=== PATIENT | female | born 1940 | race Caucasian/White ===

== ENCOUNTER 2018-09-24 07:03 | Day surgery (SDC) | payer MEDICARE ==
[2018-09-23 12:19] VITALS: BMI 23.1
[2018-09-24] MEDS ORDERED: MIDAZOLAM HCL 2 MG/2 ML SINGLE DOSE VIAL ONE (07:59)
[2018-09-24] MEDS ORDERED: TETRACAINE/BENZOCAINE/BUTAMBEN 20 GM SPR TP ONE (08:05)
[2018-09-24 09:04] VITALS: TEMP 97.4
[2018-09-24 10:18] LABS: BASO % 0.5 % (0-2.0); EOS % 0.3 % (0-4.5); HEMATOCRIT 41.2 % (32.4-45.2); LYMPH % 15.3 % (8-40); MCH 29.1 pg (25.7-33.7); MEAN CELL VOLUME 85.4 fl (80-96); MEAN PLT VOLUME 7.4 fl (7.5-11.1); MONO % 7.9 % (3.8-10.2); PLATELET COUNT 235 K/MM3 (134-434); RBC 4.83 M/mm3 (3.60-5.2); RDW 14.5 % (11.6-15.6); WHITE BLOOD COUNT 7.4 K/mm3 (4.0-10.0)
[2018-09-24 11:04] LABS: ALBUMIN 3.8 g/dl (3.4-5.0); ALK PHOS 79 U/L (45-117); ANION GAP 8 MMOL/L (8-16); BLOOD UREA NITROGEN 12 mg/dL (7-18); CALCIUM 9.2 mg/dL (8.5-10.1); CHLORIDE 103 mmol/L (98-107); CO2 28 mmol/L (21-32); CREATININE 0.9 mg/dL (0.55-1.3); GLUCOSE,RANDOM 91 mg/dL (74-106); SGOT/AST 21 U/L (15-37); SGPT/ALT 22 U/L (13-61); SODIUM 140 mmol/L (136-145); TOT PROT 7.6 g/dl (6.4-8.2)
[2018-09-24 11:33] VITALS: BP 112/74; PULSE 53
[2018-09-25 06:05] LABS: CARCINOEMBRYONIC ANTIGEN 6.6 ng/mL (0.0-4.7)
--- NOTE | 2018-09-28 18:23 | PATH ---
Surgical Pathology Report Patient Name: RADHA MUELLER [facility]. Rec. #: [id number] /Age/Gender: 1940 (Age: 77) / F Account: [id number] Location: U-ENDOSCOPY Taken: 09/24/2018 Received: 09/24/2018 Reported: 09/28/2018 Physicians: Charan Matthew M.D. Specimen(s) Received A: ANTRUM B: ESOPHAGUS C: RECTAL POLYP D: ANASTOMOTIC POLYP Clinical History Elevated CEA, rule out recurrent esophageal cancer, rule out colon cancer Postoperative diagnosis: GERD, gastroparesis, status post esophagectomy anastomosis, colon polyps, colon diverticuli Final Diagnosis A. STOMACH, ANTRUM, BIOPSY: GASTRIC ANTRAL MUCOSA WITH MODERATE CHRONIC GASTRITIS. IMMUNOHISTOCHEMICAL STAIN FOR H. PYLORI IS NEGATIVE. B. ESOPHAGO-GASTRIC ANASTOMOSIS, BIOPSY: SQUAMOCOLUMNAR MUCOSA WITH MARKED ACUTE AND CHRONIC INFLAMMATION, FOCAL ULCERATION, AND REFLUX TYPE CHANGES. NO INTESTINAL METAPLASIA OR DYSPLASIA IDENTIFIED. PAS FUNGAL STAIN IS NEGATIVE. C. RECTAL POLYP, BIOPSY: HYPERPLASTIC POLYP. D. STOMACH, POLYP, BIOPSY: POLYPOID COLONIC MUCOSA WITH PROMINENT LYMPHOID AGGREGATES AND SUPERFICIAL HYPERPLASTIC FEATURES. Electronically Signed Lovely Black M.D. Gross Description A. Received in formalin, labeled "biopsy antrum" are 4 keyes, irregular portions of soft tissue ranging from 0.3-0.4 cm. in greatest dimension. The specimens are submitted in toto in one cassette. B. Received in formalin, labeled "biopsy esophagogastric anastomosis" are 4 keyes, irregular portions of soft tissue ranging from 0.2-0.5 cm. in greatest dimension. The specimens are submitted in toto in one cassette. C. Received in formalin, labeled "biopsy rectal polyp" are 2 keyes, irregular portions of soft tissue measuring 0.2 and 0.4 cm. in greatest dimension. The specimens are submitted in toto in one cassette. D. Received in formalin, labeled "biopsy anastomotic polyp" are 2 keyes, irregular portions of soft tissue measuring 0.2 and 0.3 cm. in greatest dimension. The specimens are submitted in toto in one cassette. /09/24/2018 saudi09/24/2018
== END 2018-09-24 10:27 | disposition home or self-care (01) ==
LOC: JASU-ENDO 07:03
PROVIDERS: ATTEND Internal Medicine Gastroenterology
PROC: 0DBL8ZX Excision of Transverse Colon, Via Natural or Artificial Opening Endoscopic, Diagnostic (ICD-10-PCS; 2018-09-24)
PROC: 0DB58ZX Excision of Esophagus, Via Natural or Artificial Opening Endoscopic, Diagnostic (ICD-10-PCS; 2018-09-24)
PROC: 0DB68ZX Excision of Stomach, Via Natural or Artificial Opening Endoscopic, Diagnostic (ICD-10-PCS; 2018-09-24)
PROC: 0DBP8ZX Excision of Rectum, Via Natural or Artificial Opening Endoscopic, Diagnostic (ICD-10-PCS; principal; 2018-09-24 08:00)
DX: Z12.11 Encounter for screening for malignant neoplasm of colon (principal); Z86.010 Personal history of colon polyps; D12.3 Benign neoplasm of transverse colon; K62.1 Rectal polyp; K64.8 Other hemorrhoids; K57.30 Diverticulosis of large intestine without perforation or abscess without bleeding; Z98.0 Intestinal bypass and anastomosis status; K21.0 Gastro-esophageal reflux disease with esophagitis
CPT/HCPCS: 36415; 80053; 82378; 82728; 83540; 83550; 85025; 86140; 86301; 88305-TC; 88312-TC; 88342-TC

== ENCOUNTER 2018-11-13 10:09 | Emergency (ER) | payer MEDICARE ==
--- NOTE | 2018-11-13 10:34 | PDOC ---
History of Present Illness - General Chief Complaint: Respiratory Stated Complaint: PNEUMONIA Time Seen by Provider: 11/13/18 10:33 History Source: Patient Exam Limitations: No Limitations - History of Present Illness Initial Comments: 78 yo pleasant female w a pmh of CAD s/p cath 2 years prior 40% stenosis, HTN, HLD, COPD, esophageal carcinoma s/p resection, diverticulosis, GERD, Cirrhosis, cholelithiasis, breast Ca s/p left mastectomy, Chronic low back pain, osteoarthritis, NIDDM who presents to the ER to be evaluated for if she has pneumonia. She has been experiencing left sided intermittent crampy pain on the left side of her chest. She states she has had walking pneumonia in the past and this feels extremely similar to her past episode of walking PNA. She has been experiencing some shortness of breath on exertion for the past few days as well. PCP: Alvarado Espinoza PSH: Colonoscopy, Hernia Repair, Mastectomy, Upper Endoscopy, esophageal carcinoma resection Social Hx: 50 Pack year smoking hx, quit 20 years prior, recreational alcohol usage. Allergies: Sulfa Past History - Past Medical History Allergies/Adverse Reactions: Allergies Allergy/AdvReac Type Severity Reaction Status Date / Time Sulfa (Sulfonamide Allergy Rash Verified 11/13/18 10:14 Antibiotics) [Sulfa(Sulfonamide Antibiotics)] Home Medications: Ambulatory Orders Amlodipine Besylate [Norvasc -] 2.5 mg PO DAILY 02/05/15 Pantoprazole Sodium [Protonix] 40 mg PO DAILY #0 02/18/16 Ascorbic Acid [Vitamin C] 500 mg PO DAILY 09/23/18 Folic Acid 1 mg PO DAILY 09/23/18 Mag Carb/Aluminum Hydrox/Algin [Gaviscon Liquid] 30 ml PO PRN 09/23/18 Multivit-Min/Iron/Folic/Lutein [Centrum Silver Women Tablet] 1 tab PO DAILY Cholecalciferol (Vitamin D3) [Vitamin D3 -] 100 unit PO DAILY 11/13/18 Levofloxacin [Levaquin] 750 mg PO DAILY 7 Days #7 tablet 11/13/18 Anemia: No Asthma: No Cancer: Yes (ESOPHAGUS,BREAST CANCER) Cardiac Disorders: No CVA: No COPD: No CHF: No Dementia: No Diabetes: (HYPOGLYCEMIA) GI Disorders: Yes (GERD,DIVERTICULOSIS,COLON ADENOMAS) Disorders: No HTN: Yes Hypercholesterolemia: No Liver Disease: Yes (NON ALCOHOLIC STESTOHEPATITIS) Seizures: No Thyroid Disease: No - Surgical History Abdominal Surgery: Yes (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, ESOPHAGEAL RESECTION;) Appendectomy: Yes Cardiac Surgery: No Cholecystectomy: No Lung Surgery: No Neurologic Surgery: No Orthopedic Surgery: No - Suicide/Smoking/Psychosocial Hx Smoking Status: Yes Smoking History: Former smoker Have you smoked in the past 12 months: No Number of Cigarettes Smoked Daily: 0 If you are a former smoker, when did you quit?: 15 yrs ago Information on smoking cessation initiated: No 'Breaking Loose' booklet given: 06/12/15 Hx Alcohol Use: Yes (OCCASIONAL) Drug/Substance Use Hx: No Substance Use Type: None Hx Substance Use Treatment: No Review of Systems - Review of Systems Able to Perform ROS?: Yes Constitutional: Yes: Chills, Diaphoresis, Fever HEENTM: No: Blurred Vision Respiratory: Yes: Cough, Shortness of Breath, SOB with Exertion, SOB at Rest Cardiac (ROS): Yes: Chest Pain. No: Irregular Heart Rate, Palpitations, Syncope ABD/GI: No: Constipated, Diarrhea, Nausea, Vomiting : No: Burning, Dysuria, Discharge Musculoskeletal: No: Back Pain, Joint Pain Integumentary: No: Bruising, Change in Color, Dryness, Erythema Neurological: No: Headache, Numbness, Paresthesia Psychiatric: No: Anxiety, Depression Endocrine: No: Excessive Sweating, Flushing Hematologic/Lymphatic: No: Blood Clots, Easy Bleeding, Bleeding Diathesis *Physical Exam - Vital Signs Last Vital Signs Temp Pulse Resp BP Pulse Ox 97.7 F 72 20 128/72 95 11/13/18 10:15 11/13/18 10:15 11/13/18 10:15 11/13/18 10:15 11/13/18 10:15 - Physical Exam General Appearance: Yes: Nourished, Appropriately Dressed. No: Apparent Distress HEENT: positive: EOMI, MELANI, Normal ENT Inspection, Normal Voice Neck: positive: Supple Respiratory/Chest: positive: Decreased Breath Sounds, Crackles (left side). negative: Lungs Clear, Respiratory Distress, Accessory Muscle Use, Labored Respiration, Rapid RR, Rhonchi, Stridor, Wheezing Cardiovascular: positive: Regular Rhythm, Regular Rate, S1, S2 Vascular Pulses: Dorsalis-Pedis (R): 2+, Doralis-Pedis (L): 2+ Gastrointestinal/Abdominal: negative: Distended Rectal Exam: positive: deferred Lymphatic: negative: Adenopathy Musculoskeletal: positive: Normal Inspection. negative: CVA Tenderness Extremity: positive: Normal Capillary Refill, Normal Inspection, Normal Range of Motion Integumentary: positive: Normal Color, Dry, Warm Neurologic: positive: manager animal II-XII NML intact, Fully Oriented, Alert, Normal Mood/ Affect ED Treatment Course - LABORATORY CBC & Chemistry Diagram: 11/13/18 11:27 11/13/18 11:27 - RADIOLOGY Radiograph Interpretation: Chest CT: CT scan of the chest without intravenous contrast Coronal and sagittal reconstruction images were obtained. Compared to prior chest x-ray dated 11/13/2018 and prior scan of the chest dated 08/05/2018 There is consolidation/atelectasis in lingular segment of the left upper lobe since consistent with pneumonia. There are also mild atelectatic changes in the right middle lobe, anteriorly medially. Mild atelectatic changes in the left lung base and a small left pleural effusion. Mild to moderate COPD changes are present. No pneumothorax is identified. Included lower neck appears unremarkable there are a few borderline mediastinal lymph nodes which are nonspecific. The heart is slightly enlarged. There is a trace of pericardial effusion. There is suggestion of gastric pull-through surgery with air-fluid level. Included upper abdomen appears unremarkable. Visualized osseous structures appear intact with anterior spondylosis and degenerative changes IMPRESSION: Mild to moderate COPD changes. Interval atelectasis/consolidation in lingular segment of the left upper lobe suggestive of pneumonia. There are also mild atelectatic changes in the right middle lobe, medially. Mild atelectatic changes in the left lower lobe with likely patchy infiltrates. A small left pleural effusion is present. No gross enlarged mediastinal lymph nodes are identified. Mild cardiomegaly. Dense calcification of the coronary arteries are present and there is a trace of pericardial effusion. Patient is apparently status post gastric pull-through. Correlate clinically for further evaluation. Medical Decision Making - Medical Decision Making 78 yo pleasant female w a pmh of CAD s/p cath 2 years prior 40% stenosis, HTN, HLD, COPD, esophageal carcinoma s/p resection, diverticulosis, GERD, Cirrhosis, cholelithiasis, breast Ca s/p left mastectomy, Chronic low back pain, osteoarthritis, NIDDM who presents to the ER to be evaluated for if she has pneumonia. She has been experiencing left sided intermittent crampy pain on the left side of her chest. She states she has had walking pneumonia in the past and this feels extremely similar to her past episode of walking PNA. She has been experiencing some shortness of breath on exertion for the past few days as well. VS: WNL DDx IBNLT: PNA, pneumothorax, ACS/MO, arrhythmia, electrolyte/metabolic disturbance, malignancy Plan: Labs, urine, CXR, EKG, chest Ct, IV hydration, re-assess. CXR shows a left sided PNA - Will treat with Abx Chest CT shows PNA as well and no malignancy. Spoke with patient's PCP Dr. Espinoza - Patient's PCP who agrees with our plan to DC the patient and states he can see her in the office this week for follow up. *DC/Admit/Observation/Transfer Diagnosis at time of Disposition: PNA (pneumonia) - Discharge Dispostion Disposition: HOME Condition at time of disposition: Stable Decision to Admit order: No - Prescriptions Prescriptions: Levofloxacin [Levaquin] 750 mg PO DAILY 7 Days #7 tablet - Referrals Referrals: Alvarado Espinoza MD [Staff Physician] - - Patient Instructions Printed Discharge Instructions: DI for Pneumonia -- Adult Additional Instructions: You came into the ER with chest paina nd shortness of breath. We did a cat scan and x-ray which showed you have a pneumonia. 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 We spoke with your primary care doctor who said he can see you in the office this week to make sure you are getting better and being taken care of. Come back to the ER immediately if your pain worsens, you become short of breath or have any other new or worsening concerns. Thank you for coming to the [facility] ER. We hope you feel better soon! Print Language: GEORGIAN - Post Discharge Activity
[2018-11-13] MEDS ORDERED: SODIUM CHLORIDE IV ONE (11:13)
[2018-11-13 12:00] LABS: BASO % 0.2 % (0-2.0); EOS % 0.8 % (0-4.5); HEMATOCRIT 37.2 % (32.4-45.2); HEMOGLOBIN 12.5 GM/dL (10.7-15.3); MCH 27.6 pg (25.7-33.7); MCHC 33.6 g/dl (32.0-36.0); MEAN CELL VOLUME 82.4 fl (80-96); MEAN PLT VOLUME 8.2 fl (7.5-11.1); MONO % 11.1 % (3.8-10.2); NEUT % 74.9 % (42.8-82.8); PLATELET COUNT 247 K/MM3 (134-434); RBC 4.52 M/mm3 (3.60-5.2); RDW 14.1 % (11.6-15.6); WHITE BLOOD COUNT 8.8 K/mm3 (4.0-10.0)
[2018-11-13] MEDS ORDERED: SODIUM CHLORIDE 0.9% 500 ML INFUS.BAG IV ONE (12:17)
[2018-11-13 12:22] VITALS: BMI 23.8
[2018-11-13 12:23] LABS: ALBUMIN 3.2 g/dl (3.4-5.0); ALK PHOS 102 U/L (45-117); ANION GAP 8 MMOL/L (8-16); BILIRUBIN,TOTAL 1.5 mg/dL (0.2-1); BLOOD UREA NITROGEN 18 mg/dL (7-18); CHLORIDE 102 mmol/L (98-107); CO2 27 mmol/L (21-32); CREATININE 0.7 mg/dL (0.55-1.3); GLUCOSE,RANDOM 109 mg/dL (74-106); POTASSIUM 3.8 mmol/L (3.5-5.1); SGOT/AST 15 U/L (15-37); SGPT/ALT 14 U/L (13-61); SODIUM 137 mmol/L (136-145); TOT PROT 7.2 g/dl (6.4-8.2)
--- NOTE | 2018-11-13 12:54 | PDOC ---
Documentation entered by Alba Duggan SCRIBE, acting as scribe for Chirag Gonzalez MD. Chirag Gonzalez MD: This documentation has been prepared by the Olga Lidia prado Sammi, SCRIBE, under my direction and personally reviewed by me in its entirety. I confirm that the documentation accurately reflects all work, treatment, procedures, and medical decision making performed by me. Attending Attestation - Resident Resident Name: Junior Webb - ED Attending Attestation I have performed the following: I have examined & evaluated the patient, The case was reviewed & discussed with the resident, I agree w/resident's findings & plan - HPI HPI: 11/13/18 12:48 78-year-old female, distant smoking history quit about 34 years ago, breast CA status post surgical resection without chemotherapy/radiation 35 years ago, esophageal CA status post resection without chemotherapy/radiation in 2013, history of one episode of pneumonia in 2014 presents now with left thoracic discomfort for 2 days and slight cough today. No fevers or chills, no shortness of breath, no night sweats. Patient had routine follow-up CT of the chest in July that showed left upper lobe nodule that was otherwise unchanged, has otherwise been in her baseline. Patient presents because her symptoms feel identical to her prior walking pneumonia. - Physicial Exam PE: 11/13/18 12:49 Vital signs are normal Including afebrile and O2 sat 98% on room air Seated comfortably in chair, speaking full sentences Heart is regular, lungs are clear to my auscultation without accessory muscle use or wheezing or focally decreased breath sounds One plus edema bilaterally, left slightly greater than right, ongoing for 1 month with varicosities present - Medical Decision Making 11/13/18 12:50 78-year-old female with breast and esophageal cancer history, also with history of emphysema not currently smoking presents with thoracic/lung discomfort for 2 days and cough today, no fever and with normal O2 sat without any respiratory distress. Chest x-ray performed and reveals left sided pneumonia CBC is within normal limits Given history, we'll check CT chest to rule out any superimposed neoplastic process or effusion If above is within normal limits, patient is well-appearing, can trial of outpatient antibiotics with prompt follow-up. Will discuss with Dr. Espinoza her PCP. Heart Score/ECG Review #1 ECG reviewed & interpreted by me at: 10:11 General ECG Interpretation: Sinus Rhythm (with single PVC noted), Normal Rate ( 77), Normal Intervals (qtc 434), No acute ischemic changes Compared to previous ECG there are: No significant change (c/w 06/12/15)
[2018-11-13 15:39] VITALS: BP 130/77; PULSE 67; TEMP 97.9
--- NOTE | 2018-11-13 16:29 | EKG ---
Test Reason : Blood Pressure : / mmHG Vent. Rate : 077 BPM Atrial Rate : 066 BPM P-R Int : 000 ms QRS Dur : 072 ms QT Int : 384 ms P-R-T Axes : 000 067 084 degrees QTc Int : 434 ms NORMAL SINUS RHYTHM VPCs NONSPECIFIC T WAVE ABNORMALITY Confirmed by MINESH BRUMFIELD, SADIE ([id number]) on 11/13/2018 4:28:51 PM Referred By: Confirmed By:SADIE EDGE MD
== END 2018-11-13 15:39 | disposition home or self-care (01) ==
LOC: JER 10:09
DX: J18.9 Pneumonia, unspecified organism (principal); I25.10 Atherosclerotic heart disease of native coronary artery without angina pectoris; Z98.61 Coronary angioplasty status; I10 Essential (primary) hypertension; E78.5 Hyperlipidemia, unspecified; J44.9 Chronic obstructive pulmonary disease, unspecified; K21.9 Gastro-esophageal reflux disease without esophagitis; M54.5 Low back pain; M19.90 Unspecified osteoarthritis, unspecified site; G89.29 Other chronic pain; E11.9 Type 2 diabetes mellitus without complications; Z85.3 Personal history of malignant neoplasm of breast; Z85.01 Personal history of malignant neoplasm of esophagus
CPT/HCPCS: 36415; 71046-TC-FY; 71250-TC; 80053; 83605; 84484; 85025; 87040; 93005; 93010; 99283-25

== ENCOUNTER 2022-01-01 04:28 | Day surgery (SDC) | payer OTHER, MEDICARE ==
[2021-12-24 15:54] VITALS: BMI 20.9
[2022-01-01] MEDS ORDERED: KETAMINE HCL 200 MG/20 ML VIAL ONE (09:39)
[2022-01-01 10:33] VITALS: TEMP 98
[2022-01-01 10:48] VITALS: PULSE 60
[2022-01-01 11:46] VITALS: BP 139/67
== END 2022-01-01 11:46 | disposition home or self-care (01) ==
LOC: JASU-ENDO 04:28
PROVIDERS: ATTEND Internal Medicine Gastroenterology
PROC: 0DB78ZX Excision of Stomach, Pylorus, Via Natural or Artificial Opening Endoscopic, Diagnostic (ICD-10-PCS; 2022-01-01)
PROC: 0DB48ZX Excision of Esophagogastric Junction, Via Natural or Artificial Opening Endoscopic, Diagnostic (ICD-10-PCS; 2022-01-01)
PROC: 0DB98ZX Excision of Duodenum, Via Natural or Artificial Opening Endoscopic, Diagnostic (ICD-10-PCS; principal; 2022-01-01 10:00)
DX: K22.10 Ulcer of esophagus without bleeding (principal); Z98.0 Intestinal bypass and anastomosis status; K31.84 Gastroparesis; K29.50 Unspecified chronic gastritis without bleeding
CPT/HCPCS: 82962; 88305-TC; 88342-TC

== ENCOUNTER 2022-08-13 00:30 | Inpatient (IN) | payer OTHER, MEDICARE ==
[2022-08-13 00:42] VITALS: BMI 20.3
[2022-08-13] MEDS ORDERED: morphine CARPU-JECT 2 MG/1 ML DISP.SYRIN IVPUSH ONE (00:59)
[2022-08-13] MEDS ORDERED: ONDANSETRON 4 MG/2 ML VIAL IVPUSH ONE ×2 (01:00→07:58)
[2022-08-13] MEDS ORDERED: ONDANSETRON 4 MG/2 ML VIAL ONE ×3 (01:09→07:58)
[2022-08-13 02:02] LABS: BASO % 0.5 % (0-2.0); EOS % 1.1 % (0-4.5); HEMATOCRIT 35.8 % (32.4-45.2); HEMOGLOBIN 12.2 GM/dL (10.7-15.3); LYMPH % 17.9 % (8-40); MCH 28.2 pg (25.7-33.7); MCHC 34.1 g/dl (32.0-36.0); MEAN CELL VOLUME 82.7 fl (80-96); MEAN PLT VOLUME 7.7 fl (7.5-11.1); NEUT % 72.5 % (42.8-82.8); PLATELET COUNT 207 10^3/uL (134-434); RBC 4.33 M/mm3 (3.60-5.2); RDW 15.1 % (11.6-15.6); WHITE BLOOD COUNT 6.4 K/mm3 (4.0-10.0)
[2022-08-13 02:09] LABS: INR 1.13 (0.83-1.09)
[2022-08-13 02:12] LABS: ACTIVATED PTT 28.4 SECONDS (25.2-36.5)
[2022-08-13] MEDS ORDERED: morphine CARPU-JECT 4 MG/1 ML DISP.SYRIN IVPUSH ONE (02:16)
[2022-08-13] MEDS ORDERED: morphine SULFATE 4 MG/ML VIAL ONE (02:19)
[2022-08-13 02:24] LABS: ALBUMIN 3.6 g/dl (3.4-5.0); BLOOD UREA NITROGEN 16.5 mg/dL (7-18)
[2022-08-13 02:27] LABS: CREATININE 0.7 mg/dL (0.55-1.3)
[2022-08-13 02:28] LABS: BILIRUBIN,TOTAL 0.6 mg/dL (0.2-1)
[2022-08-13 02:29] LABS: TOT PROT 7.4 g/dl (6.4-8.2)
[2022-08-13] MEDS ORDERED: ACETAMINOPHEN 1000 MG/100 ML BAG IVPB ONE (03:24)
[2022-08-13] MEDS ORDERED: FAMOTIDINE 20 MG/50 ML IVPB 20 MG/50 ML MG IVPB ONE ×2 (03:33→03:34)
[2022-08-13] MEDS ORDERED: ACETAMINOPHEN INJECTION 100 ML IVPB ONE (03:34)
[2022-08-13] MEDS ORDERED: HYDROmorphone HCl 2 MG/ML VIAL IVPB ONE (06:17)
[2022-08-13] MEDS ORDERED: HYDROmorphone HCL CARPU-JECT 2 MG/1 ML DISP.SYRIN IVPB ONE (06:17)
[2022-08-13] MEDS ORDERED: HYDROmorphone HCl 2 MG/ML VIAL ONE (06:19)
[2022-08-13] MEDS ORDERED: ACETAMINOPHEN 1000 MG/100 ML BAG IVPB PRN (08:00)
[2022-08-13] MEDS: morphine SULFATE 4 MG/ML VIAL IVPUSH PRN ×3 (14:25→23:23)
[2022-08-14] MEDS: morphine SULFATE 4 MG/ML VIAL IVPUSH PRN ×2 (03:21→07:48)
[2022-08-14] MEDS ORDERED: ACETAMINOPHEN INJECTION 100 ML IVPB ONE (08:20)
[2022-08-14] MEDS ORDERED: BUPIVACAINE HCL/PF 0.5% (5MG/ML) 10 ML VIAL ONE (08:20)
[2022-08-14] MEDS ORDERED: ceFAZolin SODIUM 1 GM VIAL ONE (08:22)
[2022-08-14] MEDS ORDERED: ONDANSETRON 4 MG/2 ML VIAL ONE (08:22)
[2022-08-14] MEDS ORDERED: DEXAMETHASONE SOD PHOSPHATE 4 MG/1 ML VIAL ONE (08:22)
[2022-08-14] MEDS ORDERED: PROPOFOL 20 ML ONE ×2 (08:22→10:13)
[2022-08-14] MEDS ORDERED: SUCCINYLCHOLINE CHLORIDE 200 MG/10 ML SYRINGE ONE (08:25)
[2022-08-14 08:49] LABS: BASO % 0.3 % (0-2.0); EOS % 0.8 % (0-4.5); HEMOGLOBIN 11.3 GM/dL (10.7-15.3); LYMPH % 13.5 % (8-40); MCH 27.6 pg (25.7-33.7); MCHC 33.1 g/dl (32.0-36.0); MEAN CELL VOLUME 83.3 fl (80-96); MEAN PLT VOLUME 8.2 fl (7.5-11.1); MONO % 10.5 % (3.8-10.2); NEUT % 74.9 % (42.8-82.8); PLATELET COUNT 185 10^3/uL (134-434); RBC 4.08 M/mm3 (3.60-5.2); RDW 14.8 % (11.6-15.6); WHITE BLOOD COUNT 7.5 K/mm3 (4.0-10.0)
[2022-08-14] MEDS ORDERED: ACETAMINOPHEN 325 MG TABLET (FP) PO PRN ×3 (08:53→17:16)
[2022-08-14] MEDS ORDERED: LACTATED RINGERS SOLUTION 1,000 ML IV SCH ×3 (09:00→11:45)
[2022-08-14 09:18] LABS: CALCIUM 8.9 mg/dL (8.5-10.1)
[2022-08-14 09:19] LABS: BLOOD UREA NITROGEN 17.6 mg/dL (7-18)
[2022-08-14 09:22] LABS: CREATININE 0.5 mg/dL (0.55-1.3)
[2022-08-14] MEDS ORDERED: amLODIPine BESYLATE 5 MG TABLET (FP) PO SCH (10:00)
[2022-08-14] MEDS ORDERED: PANTOPRAZOLE 20 MG TABLET PO SCH (10:00)
[2022-08-14] MEDS ORDERED: ePHEDrine SULFATE 50 MG/1 ML AMPULE ONE (10:01)
[2022-08-14] MEDS ORDERED: ACETAMINOPHEN 1000 MG/100 ML BAG IVPB PRN (11:31)
[2022-08-14] MEDS ORDERED: morphine SULFATE 4 MG/ML VIAL IVPUSH PRN (11:31)
[2022-08-14] MEDS: LACTATED RINGERS SOLUTION 1,000 ML IV SCH ×2 (17:50→21:36)
[2022-08-14] MEDS: CEFAZOLIN SODIUM 2 GM in DEXTROSE 5%-WATER 100 ML IVPB SCH (18:15)
[2022-08-14] MEDS ORDERED: CEFAZOLIN SODIUM 2 GM in DEXTROSE 5%-WATER 100 ML IVPB SCH (19:00)
[2022-08-15] MEDS: morphine SULFATE 4 MG/ML VIAL IVPUSH PRN ×2 (00:23→20:43)
[2022-08-15] MEDS: CEFAZOLIN SODIUM 2 GM in DEXTROSE 5%-WATER 100 ML IVPB SCH (02:10)
[2022-08-15] MEDS ORDERED: ENOXAPARIN NA (PORCINE) 40 MG/0.4 ML DISP.SYRIN SQ SCH (10:00)
[2022-08-15] MEDS ORDERED: PANTOPRAZOLE 20 MG TABLET PO SCH (10:00)
[2022-08-15] MEDS ORDERED: amLODIPine BESYLATE 5 MG TABLET (FP) PO SCH (10:00)
[2022-08-15] MEDS: ENOXAPARIN NA (PORCINE) 40 MG/0.4 ML DISP.SYRIN SQ SCH (11:00)
[2022-08-15] MEDS: PANTOPRAZOLE 20 MG TABLET PO SCH (11:01)
[2022-08-15] MEDS: amLODIPine BESYLATE 5 MG TABLET (FP) PO SCH (11:02)
[2022-08-15] MEDS: ACETAMINOPHEN 1000 MG/100 ML BAG IVPB PRN (11:02)
[2022-08-15 12:23] LABS: HEMATOCRIT 26.6 % (32.4-45.2); HEMOGLOBIN 8.8 GM/dL (10.7-15.3); MCH 27.6 pg (25.7-33.7); MCHC 33.2 g/dl (32.0-36.0); MEAN CELL VOLUME 83.2 fl (80-96); MEAN PLT VOLUME 7.8 fl (7.5-11.1); PLATELET COUNT 159 10^3/uL (134-434); RDW 14.9 % (11.6-15.6); WHITE BLOOD COUNT 7.7 K/mm3 (4.0-10.0)
[2022-08-15 12:47] LABS: BLOOD UREA NITROGEN 11.5 mg/dL (7-18)
[2022-08-15 12:50] LABS: CREATININE 0.8 mg/dL (0.55-1.3)
[2022-08-15 12:52] LABS: CALCIUM 7.4 mg/dL (8.5-10.1)
[2022-08-15] MEDS: LACTATED RINGERS SOLUTION 1,000 ML IV SCH (20:43)
[2022-08-16] MEDS: PANTOPRAZOLE 20 MG TABLET PO SCH (09:28)
[2022-08-16] MEDS: ENOXAPARIN NA (PORCINE) 40 MG/0.4 ML DISP.SYRIN SQ SCH (09:28)
[2022-08-16] MEDS: amLODIPine BESYLATE 5 MG TABLET (FP) PO SCH (09:31)
[2022-08-16 09:32] VITALS: PULSE 59; RESP 16
[2022-08-16] MEDS: ACETAMINOPHEN 1000 MG/100 ML BAG IVPB PRN (09:36)
[2022-08-16 10:32] LABS: BASO % 0.5 % (0-2.0); EOS % 3.3 % (0-4.5); HEMATOCRIT 27.9 % (32.4-45.2); HEMOGLOBIN 9.5 GM/dL (10.7-15.3); LYMPH % 12.8 % (8-40); MCHC 33.9 g/dl (32.0-36.0); MEAN CELL VOLUME 82.6 fl (80-96); MEAN PLT VOLUME 8.1 fl (7.5-11.1); MONO % 11.8 % (3.8-10.2); NEUT % 71.6 % (42.8-82.8); PLATELET COUNT 184 10^3/uL (134-434); RBC 3.37 M/mm3 (3.60-5.2); RDW 15.3 % (11.6-15.6); WHITE BLOOD COUNT 9.2 K/mm3 (4.0-10.0)
[2022-08-16 10:58] LABS: BLOOD UREA NITROGEN 13.3 mg/dL (7-18); CALCIUM 8.5 mg/dL (8.5-10.1)
[2022-08-16 11:01] LABS: CREATININE 0.6 mg/dL (0.55-1.3)
[2022-08-16 11:03] LABS: TOT PROT 6.4 g/dl (6.4-8.2)
[2022-08-16 11:09] LABS: ALBUMIN 2.9 g/dl (3.4-5.0)
[2022-08-16] MEDS ORDERED: SIMETHICONE 80 MG TAB.CHEW (FP) PO ONE (13:15)
[2022-08-16 16:46] VITALS: BP 112/53; TEMP 97.4
== END 2022-08-16 16:00 | DRG 480 ==
LOC: JER 00:30 → JERBED 01:09 → J8W 08:30 → J6S 22:08
PROVIDERS: ADMIT Internal Medicine; ATTEND Internal Medicine
PROC: 0QS606Z Reposition Right Upper Femur with Intramedullary Internal Fixation Device, Open Approach (ICD-10-PCS; principal; 2022-08-14 09:00)
DX: S72.144A Nondisplaced intertrochanteric fracture of right femur, initial encounter for closed fracture (principal); U07.1 COVID-19; I25.10 Atherosclerotic heart disease of native coronary artery without angina pectoris; E78.5 Hyperlipidemia, unspecified; J44.9 Chronic obstructive pulmonary disease, unspecified; K21.9 Gastro-esophageal reflux disease without esophagitis; E11.9 Type 2 diabetes mellitus without complications; Z85.3 Personal history of malignant neoplasm of breast; Z85.00 Personal history of malignant neoplasm of unspecified digestive organ; I11.0 Hypertensive heart disease with heart failure; I50.9 Heart failure, unspecified; W19.XXXA Unspecified fall, initial encounter; Y93.9 Activity, unspecified; Y92.89 Other specified places as the place of occurrence of the external cause; Y99.9 Unspecified external cause status
CPT/HCPCS: 36415; 70450-TC; 71045-TC-FY; 72125-TC; 72192-TC; 73552-TC-RT-FY; 76000-TC-FY; 80048; 80053; 82962; 84484; 85025; 85027; 85610; 85730; 86850; 86900; 86901; 93005; 93010; 93306-TC; 94760; 97116-GP; 97162-GP; 99285-25; C1713; C9803-CS; U0003; U0005

== ENCOUNTER 2022-10-07 14:43 | Emergency (ER) | payer OTHER, MEDICARE ==
[2022-10-07 15:04] VITALS: BP 126/62; PULSE 74; RESP 19; TEMP 97.9; BMI 19.1
[2022-10-07 16:30] LABS: BASO % 0.2 % (0-2.0); EOS % 0.2 % (0-4.5); HEMATOCRIT 34.2 % (32.4-45.2); HEMOGLOBIN 11.2 GM/dL (10.7-15.3); LYMPH % 9.2 % (8-40); MCHC 32.9 g/dl (32.0-36.0); MEAN CELL VOLUME 75.9 fl (80-96); MEAN PLT VOLUME 6.8 fl (7.5-11.1); MONO % 10.6 % (3.8-10.2); NEUT % 79.8 % (42.8-82.8); PLATELET COUNT 254 10^3/uL (134-434); RDW 14.6 % (11.6-15.6); WHITE BLOOD COUNT 9.3 K/mm3 (4.0-10.0)
[2022-10-07 17:08] LABS: CALCIUM 9.1 mg/dL (8.5-10.1)
[2022-10-07 17:09] LABS: ALBUMIN 3.2 g/dl (3.4-5.0); BLOOD UREA NITROGEN 14.2 mg/dL (7-18); MAGNESIUM 1.5 mg/dL (1.8-2.4)
[2022-10-07 17:12] LABS: CREATININE 0.6 mg/dL (0.55-1.3)
[2022-10-07 17:14] LABS: BILIRUBIN,TOTAL 0.9 mg/dL (0.2-1); TOT PROT 7.5 g/dl (6.4-8.2)
[2022-10-07 17:17] LABS: N-TERMINAL BNP 1216.6 pg/ml (5-450)
== END 2022-10-07 19:37 | disposition home or self-care (01) ==
LOC: JER 14:43
DX: J18.1 Lobar pneumonia, unspecified organism (principal)
CPT/HCPCS: 0241U-QW; 36415; 71275-TC; 80053; 80198; 83735; 83880; 84484; 85025; 86850; 86900; 86901; 93005; 93010; 99285-25; Q9967

== ENCOUNTER 2022-11-07 18:07 | Inpatient (IN) | payer OTHER, MEDICARE ==
[2022-11-07 19:13] LABS: BASO % 0.4 % (0-2.0); EOS % 0.4 % (0-4.5); HEMATOCRIT 34.4 % (32.4-45.2); HEMOGLOBIN 11.3 GM/dL (10.7-15.3); LYMPH % 11.4 % (8-40); MCH 23.8 pg (25.7-33.7); MCHC 32.8 g/dl (32.0-36.0); MEAN CELL VOLUME 72.5 fl (80-96); MONO % 10.5 % (3.8-10.2); NEUT % 77.3 % (42.8-82.8); PLATELET COUNT 263 10^3/uL (134-434); RBC 4.75 M/mm3 (3.60-5.2)
[2022-11-07 19:22] LABS: POTASSIUM 3.7 mmol/L (3.5-5.1)
[2022-11-07 19:24] LABS: BLOOD UREA NITROGEN 12.8 mg/dL (7-18); CALCIUM 9.3 mg/dL (8.5-10.1)
[2022-11-07 19:25] LABS: ALBUMIN 3.2 g/dl (3.4-5.0)
[2022-11-07 19:28] LABS: CREATININE 0.7 mg/dL (0.55-1.3)
[2022-11-07 19:29] LABS: BILIRUBIN,TOTAL 0.7 mg/dL (0.2-1); TOT PROT 7.7 g/dl (6.4-8.2)
[2022-11-07 19:32] LABS: N-TERMINAL BNP 1137.7 pg/ml (5-450)
[2022-11-07] MEDS ORDERED: VANCOMYCIN 1 GM in D5W (PRE-DOCKED) 1,000 MG/250 ML (RESTRICTED TO ID ONLY IVPB ONE (21:25)
[2022-11-07] MEDS ORDERED: PIPERACILLIN/TAZOB 3.375 GM 3.375 GM in DEXTROSE 5%-WATER - 50 ML IVPB ONE (21:26)
[2022-11-07] MEDS: ALBUTEROL SO4 2.5/IPRATROPIUM 0.5 INH SOL 3 ML VIAL.NEB. NEB SCH ×2 (21:51→21:52)
[2022-11-07] MEDS ORDERED: PIPERACILLIN/TAZOB 3.375 GM 3.375 GM/50 ML BAG IVPB ONE (21:55)
[2022-11-07] MEDS ORDERED: VANCOMYCIN/WATER FOR INJ (PEG) 1,000 MG/200 ML BAG IVPB ONE (21:55)
[2022-11-07] MEDS ORDERED: guaiFENesin 200 MG/10 ML 10 ML UNIT-DOSE CUPS PO ONE (22:32)
[2022-11-07] MEDS ORDERED: guaiFENesin/D-METHORPHAN HB 10 ML UNIT-DOSE CUPS ONE (22:51)
[2022-11-07] MEDS ORDERED: ACETAMINOPHEN 325 MG TABLET (FP) PO PRN (23:26)
[2022-11-07] MEDS ORDERED: MAG HYDROX/AL HYDROX/SIMETH 30 ML UNIT-DOSE CUP PO ONE (23:31)
[2022-11-07] MEDS ORDERED: FAMOTIDINE 20 MG/50 ML IVPB 20 MG/50 ML MG IVPB ONE (23:31)
[2022-11-07] MEDS ORDERED: ALBUTEROL SO4 2.5/IPRATROPIUM 0.5 INH SOL 3 ML VIAL.NEB. NEB SCH (23:45)
[2022-11-08] MEDS ORDERED: ALBUTEROL SO4 2.5/IPRATROPIUM 0.5 INH SOL 3 ML VIAL.NEB. NEB ONE (00:18)
[2022-11-08] MEDS ORDERED: FAMOTIDINE 20 MG/50 ML IVPB 20 MG/50 ML MG IVPB ONE (00:18)
[2022-11-08] MEDS ORDERED: METOCLOPRAMIDE HCL 10 MG TABLET (FP) PO PRN (01:16)
[2022-11-08] MEDS ORDERED: MAG HYDROX/AL HYDROX/SIMETH 30 ML UNIT-DOSE CUP ONE (01:18)
[2022-11-08] MEDS ORDERED: ALBUTEROL SO4 2.5/IPRATROPIUM 0.5 INH SOL 3 ML VIAL.NEB. NEB PRN (01:23)
[2022-11-08] MEDS ORDERED: MAG HYDROX/AL HYDROX/SIMETH 30 ML UNIT-DOSE CUP PO PRN (01:30)
[2022-11-08] MEDS: PIPERACILLIN/TAZOB 3.375 GM 3.375 GM in DEXTROSE 5%-WATER - 50 ML IVPB SCH ×2 (03:28→09:06)
[2022-11-08] MEDS ORDERED: INSULIN SLIDING SCALE (NOVOLOG) 1 VIAL SQ SCH ×2 (07:00→07:19)
[2022-11-08] MEDS: MULTIVITAMINS THER W-MINERALS COMBO TABLET (FP) PO SCH (09:05)
[2022-11-08] MEDS: LORATADINE 10 MG TABLET PO SCH (09:05)
[2022-11-08] MEDS: FOLIC ACID 1 MG TABLET (FP) PO SCH (09:05)
[2022-11-08] MEDS: amLODIPine BESYLATE 5 MG TABLET (FP) PO SCH (09:05)
[2022-11-08] MEDS: ASCORBIC ACID 500 MG TABLET (FP) PO SCH (09:05)
[2022-11-08] MEDS: PANTOPRAZOLE 40 MG TABLET PO SCH (09:05)
[2022-11-08] MEDS: ENOXAPARIN NA (PORCINE) 40 MG/0.4 ML DISP.SYRIN SQ SCH (09:06)
[2022-11-08] MEDS ORDERED: LYSINE 500 MG PO SCH (10:00)
[2022-11-08] MEDS ORDERED: CHOLECALCIFEROL (VIT D3) 400 UNIT (10 MCG) TABLET PO SCH (10:00)
[2022-11-08 10:19] LABS: BASO % 0.5 % (0-2.0); EOS % 0.3 % (0-4.5); HEMATOCRIT 31.4 % (32.4-45.2); HEMOGLOBIN 10.3 GM/dL (10.7-15.3); LYMPH % 10.6 % (8-40); MCH 23.9 pg (25.7-33.7); MCHC 32.9 g/dl (32.0-36.0); MEAN CELL VOLUME 72.4 fl (80-96); MONO % 9.7 % (3.8-10.2); NEUT % 78.9 % (42.8-82.8); PLATELET COUNT 251 10^3/uL (134-434); RBC 4.33 M/mm3 (3.60-5.2); RDW 15.1 % (11.6-15.6)
[2022-11-08 10:22] LABS: INR 1.24 (0.83-1.09); PROTHROMBIN TIME (PATIENT) 14.3 SEC (9.7-13.0)
[2022-11-08 10:25] LABS: ACTIVATED PTT 27.2 SECONDS (25.2-36.5)
[2022-11-08 10:36] LABS: POTASSIUM 3.5 mmol/L (3.5-5.1)
[2022-11-08 10:41] LABS: BLOOD UREA NITROGEN 12.1 mg/dL (7-18); CALCIUM 9.2 mg/dL (8.5-10.1); MAGNESIUM 1.6 mg/dL (1.8-2.4)
[2022-11-08 10:45] LABS: CREATININE 0.8 mg/dL (0.55-1.3); PHOSPHOROUS 4.2 mg/dL (2.5-4.9)
[2022-11-08] MEDS ORDERED: VANCOMYCIN/WATER FOR INJ (PEG) 750 MG/150 ML BAG IVPB SCH (11:00)
[2022-11-08] MEDS: INSULIN SLIDING SCALE (NOVOLOG) 1 VIAL SQ SCH ×3 (11:24→22:00)
[2022-11-08] MEDS ORDERED: ONDANSETRON 4 MG/2 ML VIAL IVPUSH PRN (12:26)
[2022-11-08 18:49] VITALS: RESP 18
[2022-11-08] MEDS ORDERED: MAGNESIUM SULFATE IN WATER 2 GM/50 ML IVPB IVPB ONE (22:15)
[2022-11-09] MEDS ORDERED: PIPERACILLIN/TAZOB 3.375 GM 3.375 GM in DEXTROSE 5%-WATER - 50 ML IVPB SCH (03:00)
[2022-11-09] MEDS: INSULIN SLIDING SCALE (NOVOLOG) 1 VIAL SQ SCH ×4 (06:25→23:16)
[2022-11-09] MEDS: MULTIVITAMINS THER W-MINERALS COMBO TABLET (FP) PO SCH (09:35)
[2022-11-09] MEDS: FOLIC ACID 1 MG TABLET (FP) PO SCH (09:35)
[2022-11-09] MEDS: PANTOPRAZOLE 40 MG TABLET PO SCH (09:35)
[2022-11-09] MEDS: ASCORBIC ACID 500 MG TABLET (FP) PO SCH (09:35)
[2022-11-09] MEDS: ENOXAPARIN NA (PORCINE) 40 MG/0.4 ML DISP.SYRIN SQ SCH (09:36)
[2022-11-09] MEDS: LORATADINE 10 MG TABLET PO SCH (09:36)
[2022-11-09] MEDS: amLODIPine BESYLATE 5 MG TABLET (FP) PO SCH (09:45)
[2022-11-09] MEDS ORDERED: VANCOMYCIN/WATER FOR INJ (PEG) 750 MG/150 ML BAG IVPB SCH (11:00)
[2022-11-09] MEDS ORDERED: guaiFENesin/D-METHORPHAN HB 10 ML UNIT-DOSE CUPS PO PRN (12:34)
[2022-11-09] MEDS: BUDESONIDE/FORMETEROL FUMARATE 160/4.5 mcg INHALER IH SCH ×2 (13:48→21:56)
[2022-11-09 14:03] VITALS: BMI 17.8
[2022-11-10] MEDS: INSULIN SLIDING SCALE (NOVOLOG) 1 VIAL SQ SCH ×2 (06:09→11:11)
[2022-11-10] MEDS: FOLIC ACID 1 MG TABLET (FP) PO SCH (09:57)
[2022-11-10] MEDS: LORATADINE 10 MG TABLET PO SCH (09:57)
[2022-11-10] MEDS: MULTIVITAMINS THER W-MINERALS COMBO TABLET (FP) PO SCH (09:57)
[2022-11-10] MEDS: PANTOPRAZOLE 40 MG TABLET PO SCH (09:57)
[2022-11-10] MEDS: ASCORBIC ACID 500 MG TABLET (FP) PO SCH (09:57)
[2022-11-10] MEDS: ENOXAPARIN NA (PORCINE) 40 MG/0.4 ML DISP.SYRIN SQ SCH ×2 (09:58→10:02)
[2022-11-10] MEDS: amLODIPine BESYLATE 5 MG TABLET (FP) PO SCH (09:58)
[2022-11-10] MEDS: BUDESONIDE/FORMETEROL FUMARATE 160/4.5 mcg INHALER IH SCH (09:58)
[2022-11-10 15:33] VITALS: BP 116/58; PULSE 60; TEMP 97.6
== END 2022-11-10 16:59 | disposition home or self-care (01) | DRG 193 ==
LOC: JER 18:07 → JERBED 22:31 → J5S 11-08 01:36
PROVIDERS: ADMIT Internal Medicine; ATTEND Internal Medicine
DX: J18.9 Pneumonia, unspecified organism (principal); E43 Unspecified severe protein-calorie malnutrition; J44.1 Chronic obstructive pulmonary disease with (acute) exacerbation; Z68.1 Body mass index [BMI] 19.9 or less, adult; K21.9 Gastro-esophageal reflux disease without esophagitis; I10 Essential (primary) hypertension; E11.9 Type 2 diabetes mellitus without complications; I25.10 Atherosclerotic heart disease of native coronary artery without angina pectoris; E78.5 Hyperlipidemia, unspecified; Z85.3 Personal history of malignant neoplasm of breast; Z85.01 Personal history of malignant neoplasm of esophagus
CPT/HCPCS: 0241U-QW; 36415; 71045-TC-FY; 71275-TC; 80048; 80053; 82962; 83735; 83880; 84100; 84484; 85025; 85610; 85730; 93005; 93010; 93971-TC; 99285-25; Q9967

== ENCOUNTER 2022-12-17 08:13 | Inpatient (IN) | payer OTHER, MEDICARE ==
[2022-12-17 08:41] VITALS: BMI 17.6
[2022-12-17] MEDS ORDERED: ALBUTEROL SO4 2.5/IPRATROPIUM 0.5 INH SOL 3 ML VIAL.NEB. NEB ONE ×2 (08:59→09:02)
[2022-12-17 09:00] LABS: VENOUS BASE EXCESS 0.5 mmol/L (-2-2); VENOUS O2 SATURATION 57.7 % (70-80); VENOUS PCO2 45.4 mmHg (38-52); VENOUS PH 7.376 (7.310-7.410)
[2022-12-17 09:13] LABS: BASO % 0.3 % (0-2.0); EOS % 0.3 % (0-4.5); HEMATOCRIT 35.6 % (32.4-45.2); HEMOGLOBIN 10.9 GM/dL (10.7-15.3); LYMPH % 4.1 % (8-40); MCH 22.1 pg (25.7-33.7); MCHC 30.7 g/dl (32.0-36.0); MEAN CELL VOLUME 72.1 fl (80-96); MEAN PLT VOLUME 7.9 fl (7.5-11.1); MONO % 5.7 % (3.8-10.2); NEUT % 89.6 % (42.8-82.8); PLATELET COUNT 326 10^3/uL (134-434); RBC 4.94 M/mm3 (3.60-5.2); WHITE BLOOD COUNT 14.5 K/mm3 (4.0-10.0)
[2022-12-17 09:16] LABS: INR 1.3 (0.83-1.09)
[2022-12-17 09:19] LABS: ACTIVATED PTT 22.8 SECONDS (25.2-36.5)
[2022-12-17 09:23] LABS: POTASSIUM 3.7 mmol/L (3.5-5.1)
[2022-12-17 09:26] LABS: BLOOD UREA NITROGEN 17.3 mg/dL (7-18); CALCIUM 9.4 mg/dL (8.5-10.1)
[2022-12-17 09:29] LABS: CREATININE 0.6 mg/dL (0.55-1.3)
[2022-12-17 09:31] LABS: BILIRUBIN,TOTAL 1.5 mg/dL (0.2-1); TOT PROT 7.7 g/dl (6.4-8.2)
[2022-12-17] MEDS ORDERED: VANCOMYCIN 1 GM in D5W (PRE-DOCKED) 1,000 MG/250 ML (RESTRICTED TO ID ONLY IVPB ONE (10:19)
[2022-12-17] MEDS ORDERED: PIPERACILLIN/TAZOB 3.375 GM 3.375 GM in DEXTROSE 5%-WATER - 50 ML IVPB ONE (10:19)
[2022-12-17] MEDS ORDERED: VANCOMYCIN/WATER FOR INJ (PEG) 1,000 MG/200 ML BAG IVPB ONE (10:23)
[2022-12-17] MEDS ORDERED: PIPERACILLIN/TAZOB 3.375 GM 3.375 GM/50 ML BAG IVPB ONE ×2 (10:23→10:24)
[2022-12-17] MEDS ORDERED: ONDANSETRON 4 MG/2 ML VIAL IVPUSH ONE (11:02)
[2022-12-17] MEDS ORDERED: MAG HYDROX/AL HYDROX/SIMETH -MYLANTA- ORAL SUSPENSION PO ONE (11:03)
[2022-12-17] MEDS ORDERED: ONDANSETRON 4 MG/2 ML VIAL ONE (11:08)
[2022-12-17] MEDS ORDERED: MAG HYDROX/AL HYDROX/SIMETH 30 ML UNIT-DOSE CUP ONE (11:08)
[2022-12-17] MEDS ORDERED: METOCLOPRAMIDE HCL 10 MG TABLET (FP) PO PRN (11:36)
[2022-12-17] MEDS ORDERED: ALBUTEROL SO4 2.5/IPRATROPIUM 0.5 INH SOL 3 ML VIAL.NEB. NEB PRN (11:36)
[2022-12-17] MEDS ORDERED: ACETAMINOPHEN 325 MG TABLET (FP) PO PRN (11:38)
[2022-12-17] MEDS ORDERED: MAG HYDROX/AL HYDROX/SIMETH 30 ML UNIT-DOSE CUP PO PRN (11:45)
[2022-12-17] MEDS: guaiFENesin/D-METHORPHAN HB 10 ML UNIT-DOSE CUPS PO PRN (12:59)
[2022-12-17] MEDS: methylPREDNISolone NA SUCC 40 MG/1 ML VIAL IVPUSH SCH ×2 (14:36→18:14)
[2022-12-17] MEDS: ALBUTEROL SO4 0.083% IH SOL 2.5 MG/3 ML VIAL.NEB. NEB SCH ×2 (15:35→20:10)
[2022-12-17] MEDS: ACETYLCYSTEINE 20% 200MG/ML 4 ML VIAL *FOR ORAL / INH USE ONLY NEB SCH ×2 (15:35→20:11)
[2022-12-17] MEDS: PIPERACILLIN/TAZOB 3.375 GM 3.375 GM in DEXTROSE 5%-WATER - 50 ML IVPB SCH (17:23)
[2022-12-17] MEDS: HEPARIN NA (PORCINE) 5,000 UNITS/ML 1ML VIAL SQ SCH (21:18)
[2022-12-17] MEDS: BUDESONIDE/FORMETEROL FUMARATE 160/4.5 mcg INHALER IH SCH ×2 (22:30→23:07)
[2022-12-18] MEDS: PIPERACILLIN/TAZOB 3.375 GM 3.375 GM in DEXTROSE 5%-WATER - 50 ML IVPB SCH ×3 (01:44→17:35)
[2022-12-18] MEDS: methylPREDNISolone NA SUCC 40 MG/1 ML VIAL IVPUSH SCH ×3 (01:44→17:35)
[2022-12-18] MEDS: ACETYLCYSTEINE 20% 200MG/ML 4 ML VIAL *FOR ORAL / INH USE ONLY NEB SCH ×4 (07:39→21:00)
[2022-12-18] MEDS: ALBUTEROL SO4 0.083% IH SOL 2.5 MG/3 ML VIAL.NEB. NEB SCH ×4 (07:39→21:00)
[2022-12-18] MEDS ORDERED: LYSINE 500 MG PO SCH (10:00)
[2022-12-18] MEDS: amLODIPine BESYLATE 5 MG TABLET (FP) PO SCH (10:23)
[2022-12-18] MEDS: MULTIVITAMINS (DAILY MVI) TABLET (FP) PO SCH (10:23)
[2022-12-18] MEDS: CHOLECALCIFEROL (VIT D3) 1,000 UNIT (25 MCG) TABLET PO SCH (10:23)
[2022-12-18] MEDS: ASCORBIC ACID 500 MG TABLET (FP) PO SCH (10:23)
[2022-12-18] MEDS: BUDESONIDE/FORMETEROL FUMARATE 160/4.5 mcg INHALER IH SCH ×2 (10:23→21:29)
[2022-12-18] MEDS: PANTOPRAZOLE 20 MG TABLET PO SCH (10:23)
[2022-12-18] MEDS: LORATADINE 10 MG TABLET PO SCH (10:23)
[2022-12-18] MEDS: FOLIC ACID 1 MG TABLET (FP) PO SCH (10:23)
[2022-12-18] MEDS: HEPARIN NA (PORCINE) 5,000 UNITS/ML 1ML VIAL SQ SCH ×2 (10:24→21:27)
[2022-12-18 10:41] LABS: HEMATOCRIT 32.1 % (32.4-45.2); MCH 22.2 pg (25.7-33.7); MCHC 31.2 g/dl (32.0-36.0); MEAN PLT VOLUME 7.6 fl (7.5-11.1); PLATELET COUNT 346 10^3/uL (134-434); RBC 4.52 M/mm3 (3.60-5.2); RDW 17.1 % (11.6-15.6); WHITE BLOOD COUNT 8.7 K/mm3 (4.0-10.0)
[2022-12-18 10:51] LABS: POTASSIUM 4.3 mmol/L (3.5-5.1)
[2022-12-18 10:58] LABS: ALBUMIN 2.6 g/dl (3.4-5.0)
[2022-12-18 11:00] LABS: CREATININE 0.5 mg/dL (0.55-1.3)
[2022-12-18 11:02] LABS: TOT PROT 6.8 g/dl (6.4-8.2)
[2022-12-18 12:12] LABS: ANISOCYTOSIS 2+; MACROCYTOSIS 0; OVALOCYTE 2+; TARGET CELLS 1+; TEAR DROP CELLS 1+
[2022-12-19] MEDS: methylPREDNISolone NA SUCC 40 MG/1 ML VIAL IVPUSH SCH ×3 (01:49→17:13)
[2022-12-19] MEDS: PIPERACILLIN/TAZOB 3.375 GM 3.375 GM in DEXTROSE 5%-WATER - 50 ML IVPB SCH ×3 (01:49→17:13)
[2022-12-19] MEDS: guaiFENesin/D-METHORPHAN HB 10 ML UNIT-DOSE CUPS PO PRN (05:54)
[2022-12-19] MEDS: ALBUTEROL SO4 0.083% IH SOL 2.5 MG/3 ML VIAL.NEB. NEB SCH ×4 (07:45→20:50)
[2022-12-19] MEDS: ACETYLCYSTEINE 20% 200MG/ML 4 ML VIAL *FOR ORAL / INH USE ONLY NEB SCH ×4 (07:45→20:50)
[2022-12-19] MEDS: MULTIVITAMINS (DAILY MVI) TABLET (FP) PO SCH (10:44)
[2022-12-19] MEDS: ASCORBIC ACID 500 MG TABLET (FP) PO SCH (10:44)
[2022-12-19] MEDS: PANTOPRAZOLE 20 MG TABLET PO SCH (10:44)
[2022-12-19] MEDS: LORATADINE 10 MG TABLET PO SCH (10:44)
[2022-12-19] MEDS: CHOLECALCIFEROL (VIT D3) 1,000 UNIT (25 MCG) TABLET PO SCH (10:45)
[2022-12-19] MEDS: FOLIC ACID 1 MG TABLET (FP) PO SCH (10:45)
[2022-12-19] MEDS: HEPARIN NA (PORCINE) 5,000 UNITS/ML 1ML VIAL SQ SCH ×2 (10:45→22:36)
[2022-12-19] MEDS: amLODIPine BESYLATE 5 MG TABLET (FP) PO SCH (10:45)
[2022-12-19] MEDS: BUDESONIDE/FORMETEROL FUMARATE 160/4.5 mcg INHALER IH SCH ×2 (10:53→23:59)
[2022-12-20] MEDS: methylPREDNISolone NA SUCC 40 MG/1 ML VIAL IVPUSH SCH ×3 (02:26→18:14)
[2022-12-20] MEDS: PIPERACILLIN/TAZOB 3.375 GM 3.375 GM in DEXTROSE 5%-WATER - 50 ML IVPB SCH ×3 (02:27→18:15)
[2022-12-20] MEDS: ACETYLCYSTEINE 20% 200MG/ML 4 ML VIAL *FOR ORAL / INH USE ONLY NEB SCH ×4 (08:00→20:31)
[2022-12-20] MEDS: ALBUTEROL SO4 0.083% IH SOL 2.5 MG/3 ML VIAL.NEB. NEB SCH ×4 (08:01→20:30)
[2022-12-20] MEDS: FOLIC ACID 1 MG TABLET (FP) PO SCH (11:08)
[2022-12-20] MEDS: PANTOPRAZOLE 20 MG TABLET PO SCH (11:08)
[2022-12-20] MEDS: LORATADINE 10 MG TABLET PO SCH (11:08)
[2022-12-20] MEDS: HEPARIN NA (PORCINE) 5,000 UNITS/ML 1ML VIAL SQ SCH ×2 (11:08→21:52)
[2022-12-20] MEDS: MULTIVITAMINS (DAILY MVI) TABLET (FP) PO SCH (11:09)
[2022-12-20] MEDS: CHOLECALCIFEROL (VIT D3) 1,000 UNIT (25 MCG) TABLET PO SCH (11:09)
[2022-12-20] MEDS: amLODIPine BESYLATE 5 MG TABLET (FP) PO SCH (11:09)
[2022-12-20] MEDS: ASCORBIC ACID 500 MG TABLET (FP) PO SCH (11:09)
[2022-12-20] MEDS: BUDESONIDE/FORMETEROL FUMARATE 160/4.5 mcg INHALER IH SCH ×2 (11:12→21:53)
[2022-12-21] MEDS: methylPREDNISolone NA SUCC 40 MG/1 ML VIAL IVPUSH SCH ×3 (02:06→21:39)
[2022-12-21] MEDS: PIPERACILLIN/TAZOB 3.375 GM 3.375 GM in DEXTROSE 5%-WATER - 50 ML IVPB SCH ×3 (02:06→18:22)
[2022-12-21] MEDS: ACETYLCYSTEINE 20% 200MG/ML 4 ML VIAL *FOR ORAL / INH USE ONLY NEB SCH ×4 (07:55→20:32)
[2022-12-21] MEDS: ALBUTEROL SO4 0.083% IH SOL 2.5 MG/3 ML VIAL.NEB. NEB SCH ×4 (07:55→20:32)
[2022-12-21] MEDS: HEPARIN NA (PORCINE) 5,000 UNITS/ML 1ML VIAL SQ SCH ×2 (09:45→21:39)
[2022-12-21] MEDS: ASCORBIC ACID 500 MG TABLET (FP) PO SCH ×2 (09:45→10:08)
[2022-12-21] MEDS: PANTOPRAZOLE 20 MG TABLET PO SCH ×2 (09:45→10:08)
[2022-12-21] MEDS: CHOLECALCIFEROL (VIT D3) 1,000 UNIT (25 MCG) TABLET PO SCH ×2 (09:45→10:08)
[2022-12-21] MEDS: amLODIPine BESYLATE 5 MG TABLET (FP) PO SCH ×2 (09:45→10:45)
[2022-12-21] MEDS: MULTIVITAMINS (DAILY MVI) TABLET (FP) PO SCH ×2 (09:45→10:08)
[2022-12-21] MEDS: FOLIC ACID 1 MG TABLET (FP) PO SCH ×2 (09:45→10:08)
[2022-12-21] MEDS: LORATADINE 10 MG TABLET PO SCH ×2 (09:45→10:08)
[2022-12-21] MEDS: BUDESONIDE/FORMETEROL FUMARATE 160/4.5 mcg INHALER IH SCH ×2 (10:08→21:40)
[2022-12-22] MEDS: PIPERACILLIN/TAZOB 3.375 GM 3.375 GM in DEXTROSE 5%-WATER - 50 ML IVPB SCH ×3 (01:54→17:11)
[2022-12-22] MEDS: ALBUTEROL SO4 0.083% IH SOL 2.5 MG/3 ML VIAL.NEB. NEB SCH ×3 (07:50→15:16)
[2022-12-22] MEDS: ACETYLCYSTEINE 20% 200MG/ML 4 ML VIAL *FOR ORAL / INH USE ONLY NEB SCH ×4 (07:50→19:34)
[2022-12-22] MEDS: MULTIVITAMINS (DAILY MVI) TABLET (FP) PO SCH (10:08)
[2022-12-22] MEDS: LORATADINE 10 MG TABLET PO SCH (10:08)
[2022-12-22] MEDS: methylPREDNISolone NA SUCC 40 MG/1 ML VIAL IVPUSH SCH ×2 (10:08→21:09)
[2022-12-22] MEDS: FOLIC ACID 1 MG TABLET (FP) PO SCH (10:08)
[2022-12-22] MEDS: amLODIPine BESYLATE 5 MG TABLET (FP) PO SCH (10:08)
[2022-12-22] MEDS: ASCORBIC ACID 500 MG TABLET (FP) PO SCH (10:08)
[2022-12-22] MEDS: PANTOPRAZOLE 20 MG TABLET PO SCH (10:08)
[2022-12-22] MEDS: CHOLECALCIFEROL (VIT D3) 1,000 UNIT (25 MCG) TABLET PO SCH (10:08)
[2022-12-22] MEDS: BUDESONIDE/FORMETEROL FUMARATE 160/4.5 mcg INHALER IH SCH ×2 (10:09→21:09)
[2022-12-22] MEDS: HEPARIN NA (PORCINE) 5,000 UNITS/ML 1ML VIAL SQ SCH ×2 (10:09→21:08)
[2022-12-23] MEDS: PIPERACILLIN/TAZOB 3.375 GM 3.375 GM in DEXTROSE 5%-WATER - 50 ML IVPB SCH ×3 (01:45→18:11)
[2022-12-23] MEDS: ACETYLCYSTEINE 20% 200MG/ML 4 ML VIAL *FOR ORAL / INH USE ONLY NEB SCH ×4 (08:06→20:20)
[2022-12-23] MEDS: PANTOPRAZOLE 20 MG TABLET PO SCH (09:45)
[2022-12-23] MEDS: LORATADINE 10 MG TABLET PO SCH (09:45)
[2022-12-23] MEDS: CHOLECALCIFEROL (VIT D3) 1,000 UNIT (25 MCG) TABLET PO SCH (09:45)
[2022-12-23] MEDS: methylPREDNISolone NA SUCC 40 MG/1 ML VIAL IVPUSH SCH ×2 (09:46→21:23)
[2022-12-23] MEDS: MULTIVITAMINS (DAILY MVI) TABLET (FP) PO SCH (09:46)
[2022-12-23] MEDS: ASCORBIC ACID 500 MG TABLET (FP) PO SCH (09:46)
[2022-12-23] MEDS: FOLIC ACID 1 MG TABLET (FP) PO SCH (09:46)
[2022-12-23] MEDS: amLODIPine BESYLATE 5 MG TABLET (FP) PO SCH (09:46)
[2022-12-23] MEDS: HEPARIN NA (PORCINE) 5,000 UNITS/ML 1ML VIAL SQ SCH ×2 (09:46→21:23)
[2022-12-23] MEDS: BUDESONIDE/FORMETEROL FUMARATE 160/4.5 mcg INHALER IH SCH ×2 (09:53→21:24)
[2022-12-23] MEDS: PANTOPRAZOLE 40 MG TABLET PO SCH (21:23)
[2022-12-24] MEDS: PIPERACILLIN/TAZOB 3.375 GM 3.375 GM in DEXTROSE 5%-WATER - 50 ML IVPB SCH ×3 (02:17→18:50)
[2022-12-24] MEDS: ACETYLCYSTEINE 20% 200MG/ML 4 ML VIAL *FOR ORAL / INH USE ONLY NEB SCH ×4 (08:07→19:23)
[2022-12-24 09:48] LABS: HEMATOCRIT 34.8 % (32.4-45.2); HEMOGLOBIN 10.9 GM/dL (10.7-15.3); MCH 22.1 pg (25.7-33.7); MCHC 31.2 g/dl (32.0-36.0); MEAN CELL VOLUME 70.8 fl (80-96); MONO % 6.6 % (3.8-10.2); NEUT % 86.4 % (42.8-82.8); PLATELET COUNT 412 10^3/uL (134-434); RBC 4.92 M/mm3 (3.60-5.2); RDW 17.3 % (11.6-15.6); WHITE BLOOD COUNT 11.7 K/mm3 (4.0-10.0)
[2022-12-24 09:59] LABS: POTASSIUM 3.6 mmol/L (3.5-5.1)
[2022-12-24 10:01] LABS: CALCIUM 9.3 mg/dL (8.5-10.1)
[2022-12-24 10:02] LABS: ALBUMIN 2.8 g/dl (3.4-5.0); BLOOD UREA NITROGEN 17.2 mg/dL (7-18)
[2022-12-24 10:05] LABS: CREATININE 0.6 mg/dL (0.55-1.3)
[2022-12-24 10:07] LABS: BILIRUBIN,TOTAL 0.9 mg/dL (0.2-1); TOT PROT 6.8 g/dl (6.4-8.2)
[2022-12-24] MEDS: PANTOPRAZOLE 40 MG TABLET PO SCH ×2 (10:13→21:18)
[2022-12-24] MEDS: ASCORBIC ACID 500 MG TABLET (FP) PO SCH (10:13)
[2022-12-24] MEDS: FOLIC ACID 1 MG TABLET (FP) PO SCH (10:13)
[2022-12-24] MEDS: MULTIVITAMINS (DAILY MVI) TABLET (FP) PO SCH (10:13)
[2022-12-24] MEDS: CHOLECALCIFEROL (VIT D3) 1,000 UNIT (25 MCG) TABLET PO SCH (10:13)
[2022-12-24] MEDS: LORATADINE 10 MG TABLET PO SCH (10:13)
[2022-12-24] MEDS: HEPARIN NA (PORCINE) 5,000 UNITS/ML 1ML VIAL SQ SCH ×2 (10:13→21:18)
[2022-12-24] MEDS: amLODIPine BESYLATE 5 MG TABLET (FP) PO SCH (10:13)
[2022-12-24] MEDS: BUDESONIDE/FORMETEROL FUMARATE 160/4.5 mcg INHALER IH SCH ×2 (10:14→21:20)
[2022-12-24] MEDS: methylPREDNISolone NA SUCC 40 MG/1 ML VIAL IVPUSH SCH ×2 (11:12→21:19)
[2022-12-24] MEDS: NYSTATIN 500,000 UNITS/5 ML SUSPENSION PO SCH (18:50)
[2022-12-25] MEDS: NYSTATIN 500,000 UNITS/5 ML SUSPENSION PO SCH ×4 (00:14→17:08)
[2022-12-25] MEDS: PIPERACILLIN/TAZOB 3.375 GM 3.375 GM in DEXTROSE 5%-WATER - 50 ML IVPB SCH ×3 (01:32→17:08)
[2022-12-25] MEDS: ACETYLCYSTEINE 20% 200MG/ML 4 ML VIAL *FOR ORAL / INH USE ONLY NEB SCH ×4 (08:28→20:39)
[2022-12-25] MEDS: amLODIPine BESYLATE 5 MG TABLET (FP) PO SCH (09:47)
[2022-12-25] MEDS: FOLIC ACID 1 MG TABLET (FP) PO SCH (09:47)
[2022-12-25] MEDS: methylPREDNISolone NA SUCC 40 MG/1 ML VIAL IVPUSH SCH (09:47)
[2022-12-25] MEDS: CHOLECALCIFEROL (VIT D3) 1,000 UNIT (25 MCG) TABLET PO SCH (09:47)
[2022-12-25] MEDS: HEPARIN NA (PORCINE) 5,000 UNITS/ML 1ML VIAL SQ SCH ×2 (09:47→21:43)
[2022-12-25] MEDS: LORATADINE 10 MG TABLET PO SCH (09:47)
[2022-12-25] MEDS: MULTIVITAMINS (DAILY MVI) TABLET (FP) PO SCH (09:47)
[2022-12-25] MEDS: PANTOPRAZOLE 40 MG TABLET PO SCH ×2 (09:47→21:43)
[2022-12-25] MEDS: BUDESONIDE/FORMETEROL FUMARATE 160/4.5 mcg INHALER IH SCH ×2 (09:49→21:46)
[2022-12-25] MEDS: ASCORBIC ACID 500 MG TABLET (FP) PO SCH (09:57)
[2022-12-25] MEDS: ALBUTEROL SO4 0.083% IH SOL 2.5 MG/3 ML VIAL.NEB. NEB SCH ×3 (12:33→20:39)
[2022-12-25 15:22] VITALS: RESP 18
[2022-12-26] MEDS: NYSTATIN 500,000 UNITS/5 ML SUSPENSION PO SCH ×3 (01:12→14:29)
[2022-12-26] MEDS: PIPERACILLIN/TAZOB 3.375 GM 3.375 GM in DEXTROSE 5%-WATER - 50 ML IVPB SCH ×2 (01:13→09:32)
[2022-12-26] MEDS: ALBUTEROL SO4 0.083% IH SOL 2.5 MG/3 ML VIAL.NEB. NEB SCH ×3 (07:10→15:25)
[2022-12-26] MEDS: ACETYLCYSTEINE 20% 200MG/ML 4 ML VIAL *FOR ORAL / INH USE ONLY NEB SCH ×3 (07:10→15:24)
[2022-12-26] MEDS: ASCORBIC ACID 500 MG TABLET (FP) PO SCH (09:31)
[2022-12-26] MEDS: FOLIC ACID 1 MG TABLET (FP) PO SCH (09:31)
[2022-12-26] MEDS: HEPARIN NA (PORCINE) 5,000 UNITS/ML 1ML VIAL SQ SCH (09:31)
[2022-12-26] MEDS: MULTIVITAMINS (DAILY MVI) TABLET (FP) PO SCH (09:31)
[2022-12-26] MEDS: LORATADINE 10 MG TABLET PO SCH (09:31)
[2022-12-26] MEDS: PANTOPRAZOLE 40 MG TABLET PO SCH (09:31)
[2022-12-26] MEDS: CHOLECALCIFEROL (VIT D3) 1,000 UNIT (25 MCG) TABLET PO SCH (09:31)
[2022-12-26] MEDS: BUDESONIDE/FORMETEROL FUMARATE 160/4.5 mcg INHALER IH SCH (09:39)
[2022-12-26] MEDS ORDERED: methylPREDNISolone NA SUCC 40 MG/1 ML VIAL IVPUSH SCH (10:00)
[2022-12-26] MEDS: amLODIPine BESYLATE 5 MG TABLET (FP) PO SCH (10:19)
[2022-12-26 16:27] VITALS: BP 115/54; PULSE 87; TEMP 98.8
== END 2022-12-26 04:50 | disposition home or self-care (01) | DRG 177 ==
LOC: JER 08:13 → JERBED 11:05 → J5S 12:14
PROVIDERS: ADMIT Internal Medicine; ATTEND Internal Medicine
DX: J69.0 Pneumonitis due to inhalation of food and vomit (principal); E43 Unspecified severe protein-calorie malnutrition; J44.1 Chronic obstructive pulmonary disease with (acute) exacerbation; J98.11 Atelectasis; Z68.1 Body mass index [BMI] 19.9 or less, adult; R64 Cachexia; J44.9 Chronic obstructive pulmonary disease, unspecified; I10 Essential (primary) hypertension; Z85.01 Personal history of malignant neoplasm of esophagus; Z85.3 Personal history of malignant neoplasm of breast; K75.81 Nonalcoholic steatohepatitis (NASH); K21.9 Gastro-esophageal reflux disease without esophagitis
CPT/HCPCS: 0241U-QW; 36415; 71045-TC-FY; 71250-TC; 74230-TC-FY; 80053; 82105; 82550; 82553; 82803; 83605; 84443; 84484; 85025; 85610; 85730; 86850; 86900; 86901; 87040; 87070; 87081; 87107; 87186; 87205; 87305; 87449; 87633; 92611-GN; 93005; 93010; 94640; 94761; 97116-GP; 99285-25; J1644

== ENCOUNTER 2023-06-04 14:27 | Inpatient (IN) | payer OTHER, MEDICARE ==
[2023-06-04] MEDS ORDERED: methylPREDNISolone NA SUCC 125 MG/2 ML VIAL IVPUSH ONE (14:49)
[2023-06-04] MEDS ORDERED: methylPREDNISolone NA SUCC 125 MG/2 ML VIAL ONE (15:16)
[2023-06-04] MEDS ORDERED: ALBUTEROL SO4 2.5/IPRATROPIUM 0.5 INH SOL 3 ML VIAL.NEB. NEB ONE ×4 (15:16→19:12)
[2023-06-04] MEDS: ALBUTEROL SO4 2.5/IPRATROPIUM 0.5 INH SOL 3 ML VIAL.NEB. NEB SCH ×2 (15:22→15:23)
[2023-06-04 15:35] LABS: VENOUS BASE EXCESS 5.7 mmol/L (-2-2); VENOUS O2 SATURATION 25.5 % (70-80); VENOUS PCO2 60.3 mmHg (38-52); VENOUS PH 7.351 (7.310-7.410)
[2023-06-04 15:38] LABS: BASO % 0.2 % (0-2.0); EOS % 0.2 % (0-4.5); HEMATOCRIT 32.8 % (32.4-45.2); HEMOGLOBIN 9.7 GM/dL (10.7-15.3); INR 1.24 (0.83-1.09); LYMPH % 5.1 % (8-40); MCH 20.2 pg (25.7-33.7); MCHC 29.6 g/dl (32.0-36.0); MEAN CELL VOLUME 68.4 fl (80-96); MEAN PLT VOLUME 6.6 fl (7.5-11.1); MONO % 8.2 % (3.8-10.2); NEUT % 86.3 % (42.8-82.8); PLATELET COUNT 469 10^3/uL (134-434); PROTHROMBIN TIME (PATIENT) 14.3 SEC (9.7-13.0); RBC 4.79 M/mm3 (3.60-5.2); RDW 16.1 % (11.6-15.6); WHITE BLOOD COUNT 9.9 K/mm3 (4.0-10.0)
[2023-06-04 15:40] LABS: ACTIVATED PTT 25.9 SECONDS (25.2-36.5)
[2023-06-04 16:01] LABS: ANISOCYTOSIS 1+; MACROCYTOSIS 0; OVALOCYTE 1+
[2023-06-04 16:44] LABS: POTASSIUM 4.3 mmol/L (3.5-5.1)
[2023-06-04 16:46] LABS: CALCIUM 9.6 mg/dL (8.5-10.1)
[2023-06-04 16:47] LABS: BLOOD UREA NITROGEN 18.6 mg/dL (7-18); MAGNESIUM 1.9 mg/dL (1.8-2.4)
[2023-06-04 16:50] LABS: CREATININE 0.7 mg/dL (0.55-1.3)
[2023-06-04 16:51] LABS: BILIRUBIN,TOTAL 0.6 mg/dL (0.2-1); TOT PROT 7.4 g/dl (6.4-8.2)
[2023-06-04] MEDS ORDERED: APIXABAN 5 MG TABLET PO ONE (18:28)
[2023-06-04] MEDS ORDERED: FUROSEMIDE 40 MG/4 ML INJECTABLE VIAL IVPUSH ONE (18:29)
[2023-06-04] MEDS ORDERED: PIPERACILLIN/TAZOB 4.5 GM 4.5 GM in DEXTROSE 5%-WATER 100 ML IVPB ONE (18:36)
[2023-06-04] MEDS ORDERED: APIXABAN 5 MG TABLET ONE (18:42)
[2023-06-04] MEDS ORDERED: PIPERACILLIN/TAZOB 4.5 GM 4.5 GM/100 ML BAG IVPB ONE (18:42)
[2023-06-04] MEDS ORDERED: FUROSEMIDE 40 MG/4 ML INJECTABLE VIAL ONE (18:42)
[2023-06-04] MEDS ORDERED: ACETAMINOPHEN 1000 MG/100 ML BAG IVPB ONE (19:29)
[2023-06-04] MEDS ORDERED: ACETAMINOPHEN INJECTION 100 ML IVPB ONE (19:40)
[2023-06-05] MEDS ORDERED: ALBUTEROL SO4 2.5/IPRATROPIUM 0.5 INH SOL 3 ML VIAL.NEB. NEB PRN (00:24)
[2023-06-05] MEDS ORDERED: ACETAMINOPHEN 325 MG TABLET (FP) PO PRN (00:24)
[2023-06-05] MEDS ORDERED: PIPERACILLIN/TAZOB 4.5 GM 4.5 GM in DEXTROSE 5%-WATER 100 ML IVPB SCH (03:00)
[2023-06-05] MEDS: methylPREDNISolone NA SUCC 40 MG/1 ML VIAL IVPUSH SCH ×5 (03:04→21:34)
[2023-06-05] MEDS: PIPERACILLIN/TAZOB 4.5 GM 4.5 GM in DEXTROSE 5%-WATER 100 ML IVPB SCH ×3 (03:04→15:12)
[2023-06-05 04:01] LABS: EPI CELLS 22 /uL (0-25.1); HYALINE CASTS 1 /uL (0-3.1); PH,URINE 5.5 (5.0-8.0); URINE APPEARANCE CLEAR; URINE BACTERIA 67 /uL (0-1359); URINE BILIRUBIN NEGATIVE (NEGATIVE); URINE COLOR YELLOW; URINE GLUCOSE (UA) NEGATIVE (NEGATIVE); URINE KETONE NEGATIVE (NEGATIVE); URINE LEUK ESTERASE TRACE (NEGATIVE); URINE NITRITE NEGATIVE (NEGATIVE); URINE PROTEIN TRACE (NEGATIVE); URINE RBC 1190 /uL (0-23.9); URINE UROBILINOGEN 0.2 mg/dL (0.2-1.0); URINE WBC 133 /uL (0-25.8)
[2023-06-05 07:36] LABS: HEMATOCRIT 27.4 % (32.4-45.2); HEMOGLOBIN 8.4 GM/dL (10.7-15.3); MCH 20.9 pg (25.7-33.7); MCHC 30.7 g/dl (32.0-36.0); MEAN CELL VOLUME 68.1 fl (80-96); MEAN PLT VOLUME 6.7 fl (7.5-11.1); PLATELET COUNT 384 10^3/uL (134-434); RBC 4.02 M/mm3 (3.60-5.2); WHITE BLOOD COUNT 9.1 K/mm3 (4.0-10.0)
[2023-06-05] MEDS: ALBUTEROL SO4 0.083% IH SOL 2.5 MG/3 ML VIAL.NEB. NEB SCH ×4 (07:43→20:04)
[2023-06-05 08:51] LABS: POTASSIUM 3.7 mmol/L (3.5-5.1)
[2023-06-05 08:56] LABS: ALBUMIN 2.9 g/dl (3.4-5.0)
[2023-06-05 08:57] LABS: BLOOD UREA NITROGEN 21.6 mg/dL (7-18); CALCIUM 9.5 mg/dL (8.5-10.1)
[2023-06-05 09:03] LABS: CREATININE 0.7 mg/dL (0.55-1.3); TOT PROT 6.8 g/dl (6.4-8.2)
[2023-06-05 09:04] LABS: BILIRUBIN,TOTAL 0.8 mg/dL (0.2-1)
[2023-06-05 09:17] LABS: ANISOCYTOSIS 1+; MACROCYTOSIS 0; OVALOCYTE 1+
[2023-06-05] MEDS: amLODIPine BESYLATE 5 MG TABLET (FP) PO SCH (09:23)
[2023-06-05] MEDS: APIXABAN 5 MG TABLET PO SCH ×2 (09:23→21:35)
[2023-06-05] MEDS: FLUTICASONE/UMECLIDIN/VILANTER(100-62.5-25 TRELEGY ELLIPTA) INAHLER IH SCH ×2 (12:02→12:04)
[2023-06-05] MEDS ORDERED: FUROSEMIDE 40 MG/4 ML INJECTABLE VIAL IVPUSH ONE (14:15)
[2023-06-05] MEDS: UMECLIDINIUM/VILANTEROL (ANORO) 62.5/25 MCG INHALER IH SCH (15:17)
[2023-06-06] MEDS: PIPERACILLIN/TAZOB 3.375 GM 3.375 GM in DEXTROSE 5%-WATER - 50 ML IVPB SCH ×3 (01:47→18:07)
[2023-06-06] MEDS: methylPREDNISolone NA SUCC 40 MG/1 ML VIAL IVPUSH SCH ×4 (02:18→21:42)
[2023-06-06] MEDS: ALBUTEROL SO4 0.083% IH SOL 2.5 MG/3 ML VIAL.NEB. NEB SCH ×4 (08:10→20:40)
[2023-06-06 08:36] LABS: HEMATOCRIT 29.1 % (32.4-45.2); HEMOGLOBIN 8.8 GM/dL (10.7-15.3); MCH 20.5 pg (25.7-33.7); MCHC 30.3 g/dl (32.0-36.0); MEAN CELL VOLUME 67.9 fl (80-96); MEAN PLT VOLUME 6.6 fl (7.5-11.1); PLATELET COUNT 428 10^3/uL (134-434); RBC 4.29 M/mm3 (3.60-5.2)
[2023-06-06 08:56] LABS: POTASSIUM 3.6 mmol/L (3.5-5.1)
[2023-06-06 09:05] LABS: CALCIUM 9.1 mg/dL (8.5-10.1)
[2023-06-06 09:08] LABS: BLOOD UREA NITROGEN 20.9 mg/dL (7-18)
[2023-06-06 09:09] LABS: CREATININE 0.7 mg/dL (0.55-1.3)
[2023-06-06 09:33] LABS: ANISOCYTOSIS 3+; MACROCYTOSIS 0
[2023-06-06] MEDS: amLODIPine BESYLATE 5 MG TABLET (FP) PO SCH (10:02)
[2023-06-06] MEDS: APIXABAN 5 MG TABLET PO SCH ×2 (10:02→21:43)
[2023-06-06] MEDS: UMECLIDINIUM/VILANTEROL (ANORO) 62.5/25 MCG INHALER IH SCH (10:23)
[2023-06-06] MEDS: metoPROLOL SUCCINATE 25 MG TAB.SR.24H (FP) PO SCH (21:43)
[2023-06-07] MEDS: PIPERACILLIN/TAZOB 3.375 GM 3.375 GM in DEXTROSE 5%-WATER - 50 ML IVPB SCH ×3 (02:15→17:48)
[2023-06-07] MEDS: methylPREDNISolone NA SUCC 40 MG/1 ML VIAL IVPUSH SCH ×4 (02:30→21:25)
[2023-06-07] MEDS: ALBUTEROL SO4 0.083% IH SOL 2.5 MG/3 ML VIAL.NEB. NEB SCH ×4 (07:50→19:55)
[2023-06-07] MEDS: APIXABAN 5 MG TABLET PO SCH ×2 (09:14→21:25)
[2023-06-07] MEDS: metoPROLOL SUCCINATE 25 MG TAB.SR.24H (FP) PO SCH ×2 (09:14→21:26)
[2023-06-07] MEDS: UMECLIDINIUM/VILANTEROL (ANORO) 62.5/25 MCG INHALER IH SCH (09:15)
[2023-06-07] MEDS: amLODIPine BESYLATE 5 MG TABLET (FP) PO SCH (09:15)
[2023-06-08] MEDS: PIPERACILLIN/TAZOB 3.375 GM 3.375 GM in DEXTROSE 5%-WATER - 50 ML IVPB SCH ×3 (03:08→18:19)
[2023-06-08] MEDS: methylPREDNISolone NA SUCC 40 MG/1 ML VIAL IVPUSH SCH ×2 (03:08→10:15)
[2023-06-08] MEDS: ALBUTEROL SO4 0.083% IH SOL 2.5 MG/3 ML VIAL.NEB. NEB SCH ×4 (08:40→20:17)
[2023-06-08] MEDS ORDERED: POTASSIUM CHLORIDE ORAL LIQUID 20 MEQ/15 ML PO ONE (09:27)
[2023-06-08] MEDS: APIXABAN 5 MG TABLET PO SCH ×2 (10:13→21:23)
[2023-06-08] MEDS: predniSONE 20 MG TABLET (UD) PO SCH ×2 (10:13→21:23)
[2023-06-08] MEDS: UMECLIDINIUM/VILANTEROL (ANORO) 62.5/25 MCG INHALER IH SCH (10:13)
[2023-06-08] MEDS: metoPROLOL SUCCINATE 25 MG TAB.SR.24H (FP) PO SCH ×2 (10:13→21:23)
[2023-06-08] MEDS: amLODIPine BESYLATE 5 MG TABLET (FP) PO SCH (10:14)
[2023-06-08] MEDS: ACETYLCYSTEINE 20% 200MG/ML 4 ML VIAL *FOR ORAL / INH USE ONLY NEB SCH ×3 (11:45→20:17)
[2023-06-08] MEDS ORDERED: ACETYLCYSTEINE 20% 200MG/ML 30 ML VIAL *FOR ORAL / INH USE ONLY NEB SCH (12:00)
[2023-06-09] MEDS: PIPERACILLIN/TAZOB 3.375 GM 3.375 GM in DEXTROSE 5%-WATER - 50 ML IVPB SCH (03:33)
[2023-06-09] MEDS: ALBUTEROL SO4 0.083% IH SOL 2.5 MG/3 ML VIAL.NEB. NEB SCH ×4 (07:30→21:14)
[2023-06-09] MEDS: ACETYLCYSTEINE 20% 200MG/ML 4 ML VIAL *FOR ORAL / INH USE ONLY NEB SCH ×4 (07:30→21:15)
[2023-06-09] MEDS: AMOX TR/POT CLAV 500MG/125MG TABLETS (FP) PO SCH ×2 (08:14→17:33)
[2023-06-09] MEDS: amLODIPine BESYLATE 5 MG TABLET (FP) PO SCH (10:19)
[2023-06-09] MEDS: APIXABAN 5 MG TABLET PO SCH ×2 (10:19→21:09)
[2023-06-09] MEDS: metoPROLOL SUCCINATE 25 MG TAB.SR.24H (FP) PO SCH ×2 (10:21→21:09)
[2023-06-09] MEDS: PANTOPRAZOLE 40 MG TABLET PO SCH (10:21)
[2023-06-09] MEDS: predniSONE 20 MG TABLET (UD) PO SCH ×2 (10:22→21:09)
[2023-06-09] MEDS: UMECLIDINIUM/VILANTEROL (ANORO) 62.5/25 MCG INHALER IH SCH (10:22)
[2023-06-09] MEDS: LACTOBACILLUS ACIDOPHILUS 1 TABLET PO SCH (10:23)
[2023-06-09] MEDS: BISMUTH SUBSALICYLATE 262 MG/15 ML BTL PO SCH (10:23)
[2023-06-09 21:30] VITALS: RESP 20
[2023-06-10] MEDS: AMOX TR/POT CLAV 500MG/125MG TABLETS (FP) PO SCH (07:56)
[2023-06-10] MEDS: ALBUTEROL SO4 0.083% IH SOL 2.5 MG/3 ML VIAL.NEB. NEB SCH ×2 (08:21→11:18)
[2023-06-10] MEDS: ACETYLCYSTEINE 20% 200MG/ML 4 ML VIAL *FOR ORAL / INH USE ONLY NEB SCH ×2 (08:21→11:18)
[2023-06-10] MEDS: PANTOPRAZOLE 40 MG TABLET PO SCH (09:42)
[2023-06-10] MEDS: LACTOBACILLUS ACIDOPHILUS 1 TABLET PO SCH (09:42)
[2023-06-10] MEDS: predniSONE 20 MG TABLET (UD) PO SCH (09:42)
[2023-06-10] MEDS: APIXABAN 5 MG TABLET PO SCH (09:42)
[2023-06-10] MEDS: UMECLIDINIUM/VILANTEROL (ANORO) 62.5/25 MCG INHALER IH SCH (09:46)
[2023-06-10 10:51] VITALS: BP 103/52; PULSE 78; TEMP 98
[2023-06-10] MEDS: metoPROLOL SUCCINATE 25 MG TAB.SR.24H (FP) PO SCH (10:52)
[2023-06-10] MEDS: BISMUTH SUBSALICYLATE 262 MG/15 ML BTL PO SCH (10:52)
[2023-06-10] MEDS: amLODIPine BESYLATE 5 MG TABLET (FP) PO SCH (10:52)
[2023-06-10 22:52] VITALS: BMI 17.1
== END 2023-06-10 13:30 | DRG 177 ==
LOC: JER 14:27 → JERBED 18:33 → J4W 06-05 00:54
PROVIDERS: ADMIT Internal Medicine; ATTEND Family Medicine
DX: J69.0 Pneumonitis due to inhalation of food and vomit (principal); E43 Unspecified severe protein-calorie malnutrition; J96.02 Acute respiratory failure with hypercapnia; J44.0 Chronic obstructive pulmonary disease with (acute) lower respiratory infection; R64 Cachexia; Z68.1 Body mass index [BMI] 19.9 or less, adult; I11.0 Hypertensive heart disease with heart failure; I50.9 Heart failure, unspecified; E11.9 Type 2 diabetes mellitus without complications; I48.91 Unspecified atrial fibrillation; K21.9 Gastro-esophageal reflux disease without esophagitis
CPT/HCPCS: 0241U-QW; 36415; 71045-TC-FY; 71275-TC; 80048; 80053; 81003; 82803; 83735; 83880; 84484; 85025; 85610; 85730; 87040; 87070; 87086; 87205; 93005; 93010; 93306-TC; 94640; 94761; 97116-GP; 97162-GP; 99285-25; Q9967

== ENCOUNTER 2023-07-18 11:33 | Inpatient (IN) | payer OTHER, MEDICARE ==
[2023-07-18 12:47] LABS: BASO % 0.5 % (0-2.0); EOS % 0.2 % (0-4.5); HEMATOCRIT 29.6 % (32.4-45.2); LYMPH % 9.6 % (8-40); MCH 20.6 pg (25.7-33.7); MCHC 30.3 g/dl (32.0-36.0); MEAN CELL VOLUME 68.1 fl (80-96); MEAN PLT VOLUME 6.7 fl (7.5-11.1); MONO % 6.4 % (3.8-10.2); NEUT % 83.3 % (42.8-82.8); PLATELET COUNT 290 10^3/uL (134-434); RBC 4.34 M/mm3 (3.60-5.2)
[2023-07-18 13:06] LABS: POTASSIUM 4.4 mmol/L (3.5-5.1)
[2023-07-18 13:08] LABS: BLOOD UREA NITROGEN 12.6 mg/dL (7-18); CALCIUM 9.3 mg/dL (8.5-10.1)
[2023-07-18 13:09] LABS: ALBUMIN 2.7 g/dl (3.4-5.0); MAGNESIUM 1.7 mg/dL (1.8-2.4)
[2023-07-18 13:11] LABS: CREATININE 0.6 mg/dL (0.55-1.3)
[2023-07-18 13:13] LABS: BILIRUBIN,TOTAL 0.8 mg/dL (0.2-1); TOT PROT 6.1 g/dl (6.4-8.2)
[2023-07-18] MEDS ORDERED: SODIUM CHLORIDE 0.9% 500 ML INFUS.BAG IV ONE (13:14)
[2023-07-18 13:20] LABS: EPI CELLS 10 /uL (0-25.1); HYALINE CASTS 0 /uL (0-3.1); URINE APPEARANCE CLEAR; URINE BACTERIA 27 /uL (0-1359); URINE BILIRUBIN NEGATIVE (NEGATIVE); URINE COLOR YELLOW; URINE GLUCOSE (UA) NEGATIVE (NEGATIVE); URINE KETONE NEGATIVE (NEGATIVE); URINE LEUK ESTERASE TRACE (NEGATIVE); URINE NITRITE NEGATIVE (NEGATIVE); URINE PROTEIN 1+ (NEGATIVE); URINE RBC 2007 /uL (0-23.9); URINE WBC 45 /uL (0-25.8)
[2023-07-18 13:32] LABS: ANISOCYTOSIS 2+; MACROCYTOSIS 0
[2023-07-18] MEDS ORDERED: CEFTRIAXONE 1,000 MG in DEXTROSE 5%-WATER - 50 ML IVPB ONE (13:39)
[2023-07-18 13:58] LABS: POTASSIUM 3.8 mmol/L (3.5-5.1)
[2023-07-18 13:59] LABS: CALCIUM 8.3 mg/dL (8.5-10.1)
[2023-07-18 14:00] LABS: BLOOD UREA NITROGEN 12.7 mg/dL (7-18)
[2023-07-18 14:03] LABS: CREATININE 0.6 mg/dL (0.55-1.3)
[2023-07-18] MEDS ORDERED: CEFTRIAXONE 1 GM/50 ML BAG ONE (14:25)
[2023-07-18] MEDS ORDERED: ALBUTEROL SO4 2.5/IPRATROPIUM 0.5 INH SOL 3 ML VIAL.NEB. NEB PRN (16:10)
[2023-07-18] MEDS ORDERED: FUROSEMIDE 40 MG/4 ML INJECTABLE VIAL IVPUSH ONE (16:32)
[2023-07-18] MEDS ORDERED: FUROSEMIDE 40 MG/4 ML INJECTABLE VIAL ONE (17:44)
[2023-07-18] MEDS ORDERED: PIPERACILLIN/TAZOB 3.375 GM 3.375 GM/50 ML BAG IVPB ONE (18:41)
[2023-07-18] MEDS: PIPERACILLIN/TAZOB 3.375 GM 3.375 GM in DEXTROSE 5%-WATER - 50 ML IVPB SCH (19:08)
[2023-07-18 19:33] LABS: N-TERMINAL BNP 2520.2 pg/ml (5-450)
[2023-07-18] MEDS ORDERED: metoPROLOL SUCCINATE 25 MG TAB.SR.24H (FP) PO ONE (22:02)
[2023-07-18] MEDS ORDERED: MONTELUKAST NA 10 MG TABLET ONE (22:02)
[2023-07-18] MEDS: metoPROLOL SUCCINATE 25 MG TAB.SR.24H (FP) PO SCH (22:14)
[2023-07-18] MEDS: MONTELUKAST NA 10 MG TABLET PO SCH (22:14)
[2023-07-19] MEDS ORDERED: PIPERACILLIN/TAZOB 3.375 GM 3.375 GM/50 ML BAG IVPB ONE ×2 (01:32→10:00)
[2023-07-19] MEDS: PIPERACILLIN/TAZOB 3.375 GM 3.375 GM in DEXTROSE 5%-WATER - 50 ML IVPB SCH ×3 (01:45→17:43)
[2023-07-19 08:52] LABS: BASO % 0.3 % (0-2.0); EOS % 0.1 % (0-4.5); HEMATOCRIT 27.8 % (32.4-45.2); HEMOGLOBIN 8.5 GM/dL (10.7-15.3); LYMPH % 5.7 % (8-40); MCH 20.7 pg (25.7-33.7); MCHC 30.5 g/dl (32.0-36.0); MONO % 6.3 % (3.8-10.2); NEUT % 87.6 % (42.8-82.8); PLATELET COUNT 289 10^3/uL (134-434); RBC 4.09 M/mm3 (3.60-5.2); RDW 20.9 % (11.6-15.6); WHITE BLOOD COUNT 12.5 K/mm3 (4.0-10.0)
[2023-07-19 09:18] LABS: POTASSIUM 3.7 mmol/L (3.5-5.1)
[2023-07-19 09:20] LABS: ALBUMIN 2.6 g/dl (3.4-5.0)
[2023-07-19 09:23] LABS: BLOOD UREA NITROGEN 10.5 mg/dL (7-18); CALCIUM 8.3 mg/dL (8.5-10.1)
[2023-07-19 09:26] LABS: CREATININE 0.7 mg/dL (0.55-1.3); MAGNESIUM 1.6 mg/dL (1.8-2.4)
[2023-07-19 09:27] LABS: BILIRUBIN,TOTAL 0.5 mg/dL (0.2-1)
[2023-07-19 09:28] LABS: TOT PROT 5.7 g/dl (6.4-8.2)
[2023-07-19] MEDS ORDERED: metoPROLOL SUCCINATE 25 MG TAB.SR.24H (FP) PO ONE (09:59)
[2023-07-19] MEDS: amLODIPine BESYLATE 5 MG TABLET (FP) PO SCH (10:06)
[2023-07-19] MEDS: FOLIC ACID 1 MG TABLET (FP) PO SCH (10:06)
[2023-07-19] MEDS: LORATADINE 10 MG TABLET PO SCH (10:06)
[2023-07-19] MEDS: metoPROLOL SUCCINATE 25 MG TAB.SR.24H (FP) PO SCH ×2 (10:07→23:18)
[2023-07-19] MEDS: PANTOPRAZOLE 40 MG TABLET PO SCH (10:07)
[2023-07-19] MEDS ORDERED: MAGNESIUM SULF 50% (8.12 MEQ/2 ML-1 GM VIAL) IVPB ONE (10:45)
[2023-07-19] MEDS ORDERED: IRON SUCROSE INJECTION 200 MG in SODIUM CHLORIDE 90 ML IVPB ONE (11:00)
[2023-07-19] MEDS ORDERED: MAGNESIUM SULFATE IN WATER 2 GM/50 ML IVPB IVPB ONE (11:23)
[2023-07-19] MEDS: ACETAMINOPHEN 325 MG TABLET (FP) PO PRN ×2 (15:36→21:24)
[2023-07-19] MEDS: MONTELUKAST NA 10 MG TABLET PO SCH (21:25)
[2023-07-20] MEDS: PIPERACILLIN/TAZOB 3.375 GM 3.375 GM in DEXTROSE 5%-WATER - 50 ML IVPB SCH ×3 (01:16→17:44)
[2023-07-20] MEDS: ACETAMINOPHEN 325 MG TABLET (FP) PO PRN ×2 (06:34→16:12)
[2023-07-20] MEDS: metoPROLOL SUCCINATE 25 MG TAB.SR.24H (FP) PO SCH ×2 (10:19→22:34)
[2023-07-20] MEDS: APIXABAN 2.5 MG TABLET PO SCH ×3 (10:19→22:34)
[2023-07-20] MEDS: FOLIC ACID 1 MG TABLET (FP) PO SCH (10:20)
[2023-07-20] MEDS: LORATADINE 10 MG TABLET PO SCH (10:20)
[2023-07-20] MEDS: amLODIPine BESYLATE 5 MG TABLET (FP) PO SCH (10:20)
[2023-07-20] MEDS: PANTOPRAZOLE 40 MG TABLET PO SCH (10:20)
[2023-07-20 14:28] VITALS: BMI 16.8
[2023-07-20] MEDS: MONTELUKAST NA 10 MG TABLET PO SCH (22:34)
[2023-07-21] MEDS: PIPERACILLIN/TAZOB 3.375 GM 3.375 GM in DEXTROSE 5%-WATER - 50 ML IVPB SCH ×3 (01:25→17:26)
[2023-07-21] MEDS: PANTOPRAZOLE 40 MG TABLET PO SCH ×3 (10:12→23:26)
[2023-07-21] MEDS: FOLIC ACID 1 MG TABLET (FP) PO SCH (10:12)
[2023-07-21] MEDS: APIXABAN 2.5 MG TABLET PO SCH ×2 (10:13→23:18)
[2023-07-21] MEDS: LORATADINE 10 MG TABLET PO SCH (10:13)
[2023-07-21] MEDS: metoPROLOL SUCCINATE 25 MG TAB.SR.24H (FP) PO SCH ×2 (10:21→23:18)
[2023-07-21] MEDS ORDERED: amLODIPine BESYLATE 5 MG TABLET (FP) PO SCH (10:22)
[2023-07-21] MEDS: amLODIPine BESYLATE 5 MG TABLET (FP) PO SCH (10:54)
[2023-07-21] MEDS: methylPREDNISolone NA SUCC 40 MG/1 ML VIAL IVPUSH SCH ×2 (12:42→17:26)
[2023-07-21] MEDS: ALBUTEROL SO4 2.5/IPRATROPIUM 0.5 INH SOL 3 ML VIAL.NEB. NEB SCH ×2 (15:30→20:39)
[2023-07-21] MEDS: MONTELUKAST NA 10 MG TABLET PO SCH (23:18)
[2023-07-22] MEDS: methylPREDNISolone NA SUCC 40 MG/1 ML VIAL IVPUSH SCH ×3 (02:47→17:27)
[2023-07-22] MEDS: PIPERACILLIN/TAZOB 3.375 GM 3.375 GM in DEXTROSE 5%-WATER - 50 ML IVPB SCH ×3 (02:48→17:27)
[2023-07-22] MEDS: ALBUTEROL SO4 2.5/IPRATROPIUM 0.5 INH SOL 3 ML VIAL.NEB. NEB SCH ×4 (07:36→20:16)
[2023-07-22 09:06] LABS: HEMATOCRIT 27.7 % (32.4-45.2); HEMOGLOBIN 8.3 GM/dL (10.7-15.3); MCH 20.5 pg (25.7-33.7); MEAN CELL VOLUME 68.3 fl (80-96); MEAN PLT VOLUME 6.7 fl (7.5-11.1); PLATELET COUNT 363 10^3/uL (134-434); RBC 4.06 M/mm3 (3.60-5.2); RDW 20.8 % (11.6-15.6); WHITE BLOOD COUNT 11.8 K/mm3 (4.0-10.0)
[2023-07-22 09:33] LABS: POTASSIUM 3.4 mmol/L (3.5-5.1)
[2023-07-22 09:41] LABS: MAGNESIUM 1.7 mg/dL (1.8-2.4)
[2023-07-22 09:42] LABS: CREATININE 0.7 mg/dL (0.55-1.3)
[2023-07-22] MEDS: FOLIC ACID 1 MG TABLET (FP) PO SCH (11:14)
[2023-07-22] MEDS: PANTOPRAZOLE 40 MG TABLET PO SCH ×2 (11:14→22:16)
[2023-07-22] MEDS: APIXABAN 2.5 MG TABLET PO SCH ×2 (11:14→22:17)
[2023-07-22] MEDS: LORATADINE 10 MG TABLET PO SCH (11:14)
[2023-07-22] MEDS: metoPROLOL SUCCINATE 25 MG TAB.SR.24H (FP) PO SCH ×2 (11:14→22:17)
[2023-07-22] MEDS ORDERED: POTASSIUM CHLORIDE ORAL LIQUID 20 MEQ/15 ML PO ONE (11:30)
[2023-07-22] MEDS ORDERED: MAGNESIUM SULF 50% (8.12 MEQ/2 ML-1 GM VIAL) IVPB ONE (11:30)
[2023-07-22] MEDS: MONTELUKAST NA 10 MG TABLET PO SCH (22:16)
[2023-07-23] MEDS: PIPERACILLIN/TAZOB 3.375 GM 3.375 GM in DEXTROSE 5%-WATER - 50 ML IVPB SCH ×3 (01:13→18:55)
[2023-07-23] MEDS: methylPREDNISolone NA SUCC 40 MG/1 ML VIAL IVPUSH SCH (01:13)
[2023-07-23] MEDS: ALBUTEROL SO4 2.5/IPRATROPIUM 0.5 INH SOL 3 ML VIAL.NEB. NEB SCH ×4 (07:15→19:45)
[2023-07-23] MEDS: metoPROLOL SUCCINATE 25 MG TAB.SR.24H (FP) PO SCH ×2 (13:37→21:21)
[2023-07-23] MEDS: FOLIC ACID 1 MG TABLET (FP) PO SCH (13:41)
[2023-07-23] MEDS: PANTOPRAZOLE 40 MG TABLET PO SCH ×2 (13:42→21:20)
[2023-07-23] MEDS: LORATADINE 10 MG TABLET PO SCH (13:42)
[2023-07-23] MEDS: predniSONE 20 MG TABLET (UD) PO SCH ×2 (16:09→17:51)
[2023-07-23] MEDS: MONTELUKAST NA 10 MG TABLET PO SCH (21:20)
[2023-07-24] MEDS: PIPERACILLIN/TAZOB 3.375 GM 3.375 GM in DEXTROSE 5%-WATER - 50 ML IVPB SCH ×2 (01:00→09:50)
[2023-07-24] MEDS ORDERED: PIPERACILLIN/TAZOBACTAM 3.375 GM VIAL IVPB ONE (01:01)
[2023-07-24 06:29] VITALS: RESP 18
[2023-07-24] MEDS: ALBUTEROL SO4 2.5/IPRATROPIUM 0.5 INH SOL 3 ML VIAL.NEB. NEB SCH ×2 (07:52→11:09)
[2023-07-24] MEDS: metoPROLOL SUCCINATE 25 MG TAB.SR.24H (FP) PO SCH (09:49)
[2023-07-24] MEDS: PANTOPRAZOLE 40 MG TABLET PO SCH (09:49)
[2023-07-24] MEDS: FOLIC ACID 1 MG TABLET (FP) PO SCH (09:50)
[2023-07-24] MEDS: predniSONE 20 MG TABLET (UD) PO SCH (09:50)
[2023-07-24] MEDS: LORATADINE 10 MG TABLET PO SCH (09:50)
[2023-07-24 15:15] VITALS: BP 124/84; PULSE 94; TEMP 97.4
== END 2023-07-24 14:40 | DRG 178 ==
LOC: JER 11:33 → JERBED 16:24 → J7W 07-19 12:42
PROVIDERS: ADMIT Family Medicine; ATTEND Family Medicine
DX: J69.0 Pneumonitis due to inhalation of food and vomit (principal); J44.0 Chronic obstructive pulmonary disease with (acute) lower respiratory infection; N39.0 Urinary tract infection, site not specified; J90 Pleural effusion, not elsewhere classified; R64 Cachexia; Z68.1 Body mass index [BMI] 19.9 or less, adult; R33.9 Retention of urine, unspecified; I50.9 Heart failure, unspecified; I11.0 Hypertensive heart disease with heart failure; K74.60 Unspecified cirrhosis of liver; E11.9 Type 2 diabetes mellitus without complications; J44.9 Chronic obstructive pulmonary disease, unspecified; I48.91 Unspecified atrial fibrillation; I25.10 Atherosclerotic heart disease of native coronary artery without angina pectoris; E78.5 Hyperlipidemia, unspecified; K21.9 Gastro-esophageal reflux disease without esophagitis; R31.0 Gross hematuria
CPT/HCPCS: 0241U-QW; 36415; 71045-TC-FY; 72192-TC; 74150-TC; 80048; 80053; 81003; 82728; 82962; 83540; 83550; 83690; 83735; 83880; 84443; 84484; 85025; 85027; 87040; 87086; 87635; 87804; 87807; 93005; 93010; 94010; 94640; 97116-GP; 97162-GP; 99285-25; J1756

== ENCOUNTER 2023-08-17 13:25 | Inpatient (IN) | payer OTHER, MEDICARE ==
[2023-08-17 13:40] VITALS: BMI 16.0
[2023-08-17 15:03] LABS: BASO % 0.4 % (0-2.0); EOS % 0.5 % (0-4.5); HEMATOCRIT 27.7 % (32.4-45.2); HEMOGLOBIN 8.7 GM/dL (10.7-15.3); LYMPH % 5.2 % (8-40); MCH 23.2 pg (25.7-33.7); MCHC 31.3 g/dl (32.0-36.0); MEAN CELL VOLUME 74.3 fl (80-96); MEAN PLT VOLUME 6.4 fl (7.5-11.1); MONO % 4.6 % (3.8-10.2); NEUT % 89.3 % (42.8-82.8); PLATELET COUNT 150 10^3/uL (134-434); RBC 3.73 M/mm3 (3.60-5.2); RDW 26.3 % (11.6-15.6); WHITE BLOOD COUNT 8.2 K/mm3 (4.0-10.0)
[2023-08-17 15:10] LABS: INR 1.19 (0.83-1.09); PROTHROMBIN TIME (PATIENT) 13.8 SEC (9.7-13.0)
[2023-08-17 15:21] LABS: POTASSIUM 3.1 mmol/L (3.5-5.1)
[2023-08-17 15:24] LABS: ALBUMIN 2.6 g/dl (3.4-5.0); BLOOD UREA NITROGEN 25.3 mg/dL (7-18)
[2023-08-17 15:27] LABS: CREATININE 0.8 mg/dL (0.55-1.3)
[2023-08-17 15:28] LABS: TOT PROT 5.6 g/dl (6.4-8.2)
[2023-08-17 15:29] LABS: BILIRUBIN,TOTAL 0.4 mg/dL (0.2-1)
[2023-08-17 15:36] LABS: ANISOCYTOSIS 3+; MACROCYTOSIS 0
[2023-08-17] MEDS: POTASSIUM CHLORIDE TABS 20 MEQ TABLET.ER (FP) PO ONE (17:01)
[2023-08-17] MEDS ORDERED: ACETAMINOPHEN 325 MG TABLET (FP) PO PRN (17:13)
[2023-08-17] MEDS ORDERED: ALBUTEROL SO4 0.083% IH SOL 2.5 MG/3 ML VIAL.NEB. NEB PRN (17:14)
[2023-08-17] MEDS: CEFTRIAXONE 1 GM in DEXTROSE 5%-WATER - 50 ML IVPB SCH (19:03)
[2023-08-17] MEDS: DEXTROSE 5%-NORMAL SALINE 1,000 ML IV SCH (19:04)
[2023-08-17] MEDS: methylPREDNISolone NA SUCC 40 MG/1 ML VIAL IVPUSH SCH (19:04)
[2023-08-17] MEDS: HEPARIN NA (PORCINE) 5,000 UNITS/ML 1ML VIAL SQ SCH (21:22)
[2023-08-17] MEDS: IRON SUCROSE INJECTION 200 MG in SODIUM CHLORIDE 90 ML IVPB ONE (22:47)
[2023-08-18 01:28] LABS: MAGNESIUM 1.9 mg/dL (1.8-2.4)
[2023-08-18 09:43] LABS: HEMATOCRIT 25.7 % (32.4-45.2); HEMOGLOBIN 8.5 GM/dL (10.7-15.3); MCH 24.3 pg (25.7-33.7); MEAN CELL VOLUME 73.8 fl (80-96); MEAN PLT VOLUME 6.7 fl (7.5-11.1); PLATELET COUNT 144 10^3/uL (134-434); RBC 3.48 M/mm3 (3.60-5.2); RDW 26.2 % (11.6-15.6); WHITE BLOOD COUNT 6.9 K/mm3 (4.0-10.0)
[2023-08-18 10:20] LABS: POTASSIUM 3.5 mmol/L (3.5-5.1)
[2023-08-18 10:26] LABS: ALBUMIN 2.4 g/dl (3.4-5.0)
[2023-08-18 10:27] LABS: BLOOD UREA NITROGEN 18.6 mg/dL (7-18)
[2023-08-18 10:29] LABS: CALCIUM 8.8 mg/dL (8.5-10.1); CREATININE 0.7 mg/dL (0.55-1.3); TOT PROT 5.5 g/dl (6.4-8.2)
[2023-08-18 10:30] LABS: BILIRUBIN,TOTAL 0.3 mg/dL (0.2-1)
[2023-08-18] MEDS: metoPROLOL SUCCINATE 25 MG TAB.SR.24H (FP) PO SCH (10:47)
[2023-08-18] MEDS: amLODIPine BESYLATE 5 MG TABLET (FP) PO SCH (10:48)
[2023-08-18] MEDS: FERROUS GLUCONATE 324 MG TAB (FP) PO SCH (11:53)
[2023-08-18 12:16] LABS: ANISOCYTOSIS 2+; MACROCYTOSIS 1+; OVALOCYTE 1+
[2023-08-18 23:43] LABS: ARTERIAL BLOOD GAS BASE EXCESS 11.8 mmol/L (-2-2); ARTERIAL BLOOD GAS PO2 45.5 mmHg (80-100); ARTERIAL BLOOD GAS pH 7.463 (7.350-7.450)
[2023-08-18 23:44] LABS: ALLENS TEST POSITIVE
[2023-08-19] MEDS: VANCOMYCIN/WATER FOR INJ (PEG) 750 MG/150 ML BAG IVPB SCH (04:12)
[2023-08-19] MEDS: PIPERACILLIN/TAZOB 3.375 GM 3.375 GM in DEXTROSE 5%-WATER - 50 ML IVPB SCH ×2 (04:12→20:23)
[2023-08-19 10:15] LABS: HEMATOCRIT 28.4 % (32.4-45.2); HEMOGLOBIN 8.7 GM/dL (10.7-15.3); MCH 23.3 pg (25.7-33.7); MCHC 30.6 g/dl (32.0-36.0); MEAN CELL VOLUME 76.2 fl (80-96); MEAN PLT VOLUME 6.9 fl (7.5-11.1); PLATELET COUNT 192 10^3/uL (134-434); RBC 3.73 M/mm3 (3.60-5.2); RDW 26.7 % (11.6-15.6); WHITE BLOOD COUNT 10.9 K/mm3 (4.0-10.0)
[2023-08-19 10:42] LABS: POTASSIUM 3.1 mmol/L (3.5-5.1)
[2023-08-19 10:56] LABS: ALBUMIN 2.5 g/dl (3.4-5.0); BLOOD UREA NITROGEN 18.5 mg/dL (7-18); CREATININE 0.7 mg/dL (0.55-1.3)
[2023-08-19 10:58] LABS: BILIRUBIN,TOTAL 0.3 mg/dL (0.2-1); TOT PROT 5.6 g/dl (6.4-8.2)
[2023-08-19 11:18] LABS: ANISOCYTOSIS 2+; MACROCYTOSIS 1+
[2023-08-19] MEDS ORDERED: KETOROLAC TROMETHAMINE 30 MG/1 ML VIAL IVPUSH PRN (19:12)
[2023-08-19] MEDS ORDERED: morphine SULFATE 4 MG/ML VIAL IVPUSH PRN (19:13)
[2023-08-19] MEDS: VANCOMYCIN 750 MG in DEXTROSE 5%-WATER - 150 ML IVPB SCH (20:22)
[2023-08-19] MEDS: SCOPOLAMINE HYDROBROMIDE 1 PATCH PATCH.TD72 TD SCH (21:16)
[2023-08-19] MEDS: LORazepam 2 MG/ML SDV VIAL IVPUSH PRN (23:59)
[2023-08-21] MEDS ORDERED: MORPHINE SULFATE/0.9% NACL/PF 100 MG/100 ML BAG IVPB SCH (11:45)
[2023-08-21] MEDS ORDERED: morphine SULFATE 4 MG/ML VIAL IVPUSH PRN (13:19)
[2023-08-21] MEDS: MORPHINE 100 MG/100 ML MG IVPB SCH (13:26)
[2023-08-22] MEDS: MORPHINE 100 MG/100 ML MG IVPB SCH (13:23)
[2023-08-22 14:49] VITALS: BP 93/58; PULSE 102; TEMP 97.2
[2023-08-23 02:43] VITALS: RESP 10
== END 2023-08-23 00:05 | disposition expired | DRG 190 ==
LOC: JER 13:25 → JERBED 15:19 → J5S 16:00
PROVIDERS: ADMIT Internal Medicine; ATTEND Internal Medicine
DX: J44.1 Chronic obstructive pulmonary disease with (acute) exacerbation (principal); E43 Unspecified severe protein-calorie malnutrition; J18.9 Pneumonia, unspecified organism; J96.21 Acute and chronic respiratory failure with hypoxia; Z68.1 Body mass index [BMI] 19.9 or less, adult; R64 Cachexia; J44.0 Chronic obstructive pulmonary disease with (acute) lower respiratory infection; I25.10 Atherosclerotic heart disease of native coronary artery without angina pectoris; I10 Essential (primary) hypertension; E78.5 Hyperlipidemia, unspecified; J44.9 Chronic obstructive pulmonary disease, unspecified; K21.9 Gastro-esophageal reflux disease without esophagitis; K57.90 Diverticulosis of intestine, part unspecified, without perforation or abscess without bleeding; R33.9 Retention of urine, unspecified; M47.27 Other spondylosis with radiculopathy, lumbosacral region; E87.6 Hypokalemia; R62.7 Adult failure to thrive; M54.50 Low back pain, unspecified; Z85.3 Personal history of malignant neoplasm of breast; Z85.01 Personal history of malignant neoplasm of esophagus; Z99.81 Dependence on supplemental oxygen; Z51.5 Encounter for palliative care
CPT/HCPCS: 36415; 36600; 71045-TC-FY; 80053; 82728; 82803; 82962; 83036; 83540; 83550; 83690; 83735; 84443; 85025; 85610; 85730; 86850; 86900; 86901; 87635; 93005; 93010; 94660; 97116-GP; 97161-GP; 99285-25; J1644; J1756